=== PATIENT | female | born 1965 | race Caucasian/White ===

== ENCOUNTER 2019-12-03 16:34 | Outpatient (CLI) | payer OTHER, BC, SELFPAY ==
--- NOTE | ~2019-12-03 | MM_ITS ---
EXAMINATION: MM screening ibis BI w manisha HISTORY: Screening mammogram TECHNIQUE: Craniocaudal and mediolateral oblique 3-D tomosynthesis images were obtained and synthetic 2-D images were generated. CAD analysis was submitted and interpreted. COMPARISON: 10/28/2018 bilateral digital screening mammogram 11/03/2017 diagnostic right digital mammogram 10/05/2016, 09/27/2015 bilateral digital screening mammogram examinations BREAST PARENCHYMAL COMPOSITION: There are scattered areas of fibroglandular density. FINDINGS: Stable low-density circumscribed opacity in the lower inner quadrant of the right breast si nce 10/08/2017. There is no evidence of suspicious mass, calcification, or architectural distortion to suggest malignancy in either breast. There has been no suspicious interval change. IMPRESSION: 1. No mammographic evidence of malignancy. 2. Recommend routine screening mammography in one year. BI-RADS Category 2: Benign finding(s). Reviewed, dictated and finalized at location A.
== END 2019-12-03 16:35 | disposition home or self-care (01) ==
LOC: ANHIMG 16:38
PROVIDERS: PCP Internal Medicine; Visit Provider Obstetrics & Gynecology
DX: Z12.31 Encounter for screening mammogram for malignant neoplasm of breast (principal)
CPT/HCPCS: 77063; 77067

== ENCOUNTER 2021-01-26 16:39 | Outpatient (CLI) | payer OTHER, SELFPAY ==
--- NOTE | ~2021-01-26 | MM_ITS ---
EXAMINATION: MM screening ibis BI w manisha HISTORY: Screening mammogram TECHNIQUE: Craniocaudal and mediolateral oblique 3-D tomosynthesis images were obtained and synthetic 2-D images were generated. CAD analysis was submitted and interpreted. COMPARISON: 11/29/2019, 10/28/2018 bilateral screening mammogram examinations BREAST PARENCHYMAL COMPOSITION: There are scattered areas of fibroglandular density. FINDINGS: There is no evidence of suspicious mass, calcification, or architectural distortion to sugg est malignancy in either breast. There has been no suspicious interval change. IMPRESSION: 1. No mammographic evidence of malignancy. 2. Recommend routine screening mammography in one year. BI-RADS Category 2: Benign finding(s). Reviewed, dictated and finalized at location A. IGHT LINE PRESS SETTER
== END 2021-01-26 16:40 | disposition home or self-care (01) ==
LOC: ANHIMG 16:41
PROVIDERS: PCP Internal Medicine; Visit Provider Obstetrics & Gynecology
DX: Z12.31 Encounter for screening mammogram for malignant neoplasm of breast (principal)
CPT/HCPCS: 77063; 77067

== ENCOUNTER 2021-09-21 11:33 | Outpatient (CLI) | payer OTHER, SELFPAY ==
[2021-09-21 13:12] LABS: T4 Thyroxine 8.93 ug/dL (5.53-11.0)
[2021-09-26 15:56] LABS: Estrogen 794.6 pg/mL
[2021-09-26 22:47] LABS: Testosterone Total 12 ng/dL (2-45)
== END 2021-09-21 11:34 | disposition home or self-care (01) ==
LOC: ANHLAB 11:36
PROVIDERS: PCP Internal Medicine; Visit Provider Obstetrics & Gynecology
DX: N95.1 Menopausal and female climacteric states (principal); R53.83 Other fatigue
CPT/HCPCS: 36415; 82672; 84403; 84436; 84443

== ENCOUNTER 2021-10-06 10:07 | Outpatient (CLI) | payer OTHER, SELFPAY ==
--- NOTE | ~2021-10-06 | XR_ITS ---
XR lumbar spine min 4V 10/06/2021 10:44 Indication: Low back pain Procedure: 5 views of the lumbar spine Comparison: No prior studies for comparison. Findings: There are pedicle screws transfixing L4-5. There are prosthetic disc devices at L4-5 and L5 -S1. Vertebral body heights are maintained. Status post laminectomy/splenectomy at L4-5. No evidence for spondylolisthesis. There is mild disc narrowing at L3-4. No acute fracture or traumatic malalignm ent is identified. Impression: 1: Status post spinal fusion and discectomy at L4-5. Prosthetic disc device is also noted at L5-S1. 2: Mild degenerative disc disease at L3-4. Reviewed, dictated and finalized at location A. Impression: 1: Status post spinal fusion and discectomy at L4-5. Prosthetic disc device is also noted at L5-S1. 2: Mild degenerative disc disease at L3-4.
--- NOTE | ~2021-10-06 | XR_ITS ---
XR sacroiliac joints min 3V 10/06/2021 10:45 Indication: Hip pain. Previous low back surgeries. Procedure: 3 views of the sacroiliac joints Comparison: No prior studies for comparison. Findings: Sacroiliac joints are within normal limits. No significant asymmetry. No significant degene rative change. No erosive changes. No evidence for ankylosis. Sacral foramen are symmetric. Postopera tive changes noted in the lower lumbar spine and lumbosacral junction. Impression: 1: No significant abnormality of the sacroiliac joints. Reviewed, dictated and finalized at location A. Impression: 1: No significant abnormality of the sacroiliac joints.
--- NOTE | ~2021-10-06 | XR_ITS ---
XR hand BI arthritis min 3V 10/06/2021 10:45 Indication: Bilateral hand pain. Arthritis. Procedure: 4 views each hand Comparison: No prior studies for comparison. Findings: Osteopenia. No fracture, subluxation or dislocation. No significant degenerative change. No foreign bodies. No erosive changes. Impression: 1: No significant bone or joint abnormality. Reviewed, dictated and finalized at location A. Impression: 1: No significant bone or joint abnormality.
[2021-10-06 11:24] LABS: Uric Acid 4.7 mg/dL (2.5-7.5)
[2021-10-06 11:30] LABS: Complement C3 92 mg/dL (88-165)
[2021-10-06 12:06] LABS: Vitamin D 25 Hydroxy 55.3 ng/mL
[2021-10-10 03:45] LABS: Thyroid Peroxidase Antibodies <1 IU/mL (<9)
== END 2021-10-06 10:08 | disposition home or self-care (01) ==
PROVIDERS: PCP Internal Medicine; Visit Provider Internal Medicine
DX: M89.9 Disorder of bone, unspecified (principal); M25.551 Pain in right hip; M25.552 Pain in left hip; R76.8 Other specified abnormal immunological findings in serum; M47.816 Spondylosis without myelopathy or radiculopathy, lumbar region; M51.36 Other intervertebral disc degeneration, lumbar region; Z98.1 Arthrodesis status
CPT/HCPCS: 36415; 72110; 72202; 73130; 82306; 83519; 84550; 86160; 86376

== ENCOUNTER 2022-03-28 15:52 | Outpatient (CLI) | payer OTHER, SELFPAY ==
[2022-03-28 16:42] LABS: Basophils Absolute Auto 0.1 K/mm3 (0.0-0.1); Basophils Percent Auto 1.1 % (0.2-1.2); Eosinophils Absolute Auto 0.7 K/mm3 (0-0.3); Eosinophils Percent Auto 7.4 % (0-4.4); Hematocrit 44.3 % (37.0-47.0); Hemoglobin 14.2 g/dL (12.0-15.0); Immature Granulocyte Absolute 0.03 K/mm3 (0.00-0.031); Immature Granulocyte Percent A 0.3 % (0-0.5); Lymphocytes Absolute Auto 3.29 K/mm3 (0.9-3.2); Lymphocytes Percent Auto 35.8 % (18.3-44.2); Mean Corpuscular HGB Conc 32.1 g/dl (32-36); Mean Corpuscular Hemoglobin 29.5 pg (26-34); Mean Corpuscular Volume 91.9 fl (80-100); Mean Platelet Volume 10.8 fl (7.4-10.4); Monocytes Absolute Auto 0.8 K/mm3 (0.1-0.6); Monocytes Percent Auto 8.2 % (2.6-8.5); Neutrophils Absolute Auto 4.3 K/mm3 (1.3-6.7); Neutrophils Percent Auto 47.2 % (45.5-73.1); Platelet Count Result 332 k/mm3 (150-375); Red Blood Count 4.82 M/mm3 (4.2-5.4); Red Cell Distribution Width 15.6 % (11.5-14.5); White Blood Count 9.2 K/mm3 (4.5-10.0)
[2022-03-28 16:47] LABS: Appearance Urine Cloudy (Clear); Bilirubin Urine Negative (Negative); Blood Urine Trace-lysed (Negative); Color Urine Yellow (Yellow); Glucose Urine UA Negative (Negative); Ketones Urine Trace mg/dL (Negative); Leukocyte Esterase Ur 2+ LEU/UL (Negative); Nitrate Urine Negative (Negative); Protein Urine Negative (Negative); Specific Grav Ur >= 1.030 (1.001-1.035); Urobilinogen Urine 0.2 mg/dL (<2.0); pH Urine 5.5 (5.0-9.0)
[2022-03-28 16:52] LABS: Bacteria Urine Trace /hpf; Mucus Urine Rare /lpf; Squamous Epithelial Cell Urine Moderate /hpf (Few); WBC Urine >75 /hpf
[2022-03-28 16:53] LABS: Add Urine Microscopic? YES
[2022-03-28 17:05] LABS: Alanine Aminotransferase 40 U/L (6-35); Albumin Level 4.7 g/dL (3.5-5.1); Alkaline Phosphatase 102 U/L (38-126); Anion Gap 8 mmol/L (8-16); Aspartate Amino Transferase 45 U/L (14-36); Bilirubin,Total 1.1 mg/dL (0.2-1.3); Blood Urea Nitrogen 18 mg/dL (7-17); CRP 0.6 mg/dL (<1.0); Calcium 9.3 mg/dL (8.4-10.2); Carbon Dioxide 28 mmol/L (22-30); Chloride 104 mmol/L (98-107); Estimated Glomerular Filt Rate > 60; Glucose 95 mg/dL (65-110); Potassium 4.2 mmol/L (3.4-5.0); Sodium 140 mmol/L (137-145)
[2022-03-28 17:08] LABS: Erythrocyte Sedimentation Rate 9 mm/hr (0-20)
[2022-04-02 06:45] LABS: SM Antibody <1.0; SM/RNP Antibody <1.0; SS-A <1.0; SS-B <1.0
[2022-04-03 03:36] LABS: Lupus dRVVT Screen 32 sec (<=45); PTT-LA Screen 31 sec (<=40)
[2022-04-03 18:28] LABS: Parathyroid Hormone Related Pr 12 pg/mL (11-20)
== END 2022-03-28 15:53 | disposition home or self-care (01) ==
LOC: ANHLAB 15:55
PROVIDERS: PCP Internal Medicine; Visit Provider Internal Medicine
DX: M19.90 Unspecified osteoarthritis, unspecified site (principal); M25.551 Pain in right hip; M25.552 Pain in left hip; R76.8 Other specified abnormal immunological findings in serum
CPT/HCPCS: 36415; 80053; 81001; 83519; 85025; 85613; 85652; 85730; 86140; 86235; 87086; 87088; 87147

== ENCOUNTER 2022-04-11 16:33 | Outpatient (CLI) | payer OTHER, SELFPAY ==
--- NOTE | ~2022-04-11 | MM_ITS ---
EXAMINATION: MM screening ibis BI w manisha HISTORY: Screening TECHNIQUE: Craniocaudal and mediolateral oblique 3-D tomosynthesis images were obtained and synthetic 2-D images were generated. CAD analysis was submitted and interpreted. COMPARISON: Comparison to multiple prior studies sequentially, with oldest reviewed study dated 10/05. BREAST PARENCHYMAL COMPOSITION: The breasts are heterogeneously dense, which may obscure small masses . FINDINGS: There is no evidence of suspicious mass, calcification, or architectural distortion to sugg est malignancy in either breast. There has been no suspicious interval change. IMPRESSION: 1. No mammographic evidence of malignancy. 2. Recommend routine screening mammography in one year. BI-RADS Category 1: Negative Reviewed, dictated and finalized at location A. ING MILL OPERATOR
== END 2022-04-11 16:34 | disposition home or self-care (01) ==
LOC: ANHIMG 16:36
PROVIDERS: PCP Internal Medicine; Visit Provider Obstetrics & Gynecology
DX: Z12.31 Encounter for screening mammogram for malignant neoplasm of breast (principal)
CPT/HCPCS: 77063; 77067

== ENCOUNTER 2023-06-19 13:43 | Outpatient (CLI) | payer OTHER, SELFPAY ==
--- NOTE | ~2023-06-19 | DEXA_ITS ---
Bone Density Report Name: RADHA PANDEY Age: 57 Sex: Female Ethnicity: White Date of : 1965 Indication: postmenopausal; screening for osteoporosis; hysterectomy; Referring Provider: ASTON, PARTH Hemphill Study: Bone densitometry was performed. Exam Date: June 19, 2023 Accession number: [id number] Bone Density: Region BMD T-score Z-score Classification AP Spine(L1-L4) 1.161 1.0 2.1 Normal Femoral Neck (Left) 0.826 -0.2 0.9 Normal Total Hip (Left) 0.928 -0.1 0.6 Normal Femoral Neck (Right) 0.826 -0.2 0.9 Normal Total Hip (Right) 0.947 0.0 0.8 Normal Total Hip Mean 0.937 -0.1 0.7 Normal World Health Organization criteria for BMD impression classify patients as: Normal (T-score at or above -1.0), Osteopenia (T-score between -1.0 and -2.5), or Osteoporosis (T-score at or below -2.5). 10-year Fracture Risk: FRAX not reported because: All T-scores for Spine Total, Hip Total, Femoral Neck at or above -1.0 Clinical Information Provided by Patient: Has used the following medications: Vitamin D, Calcium Has the following medical conditions: Hysterectomy Patient maximum height was 70 Menopause Age: 35 No regular weight bearing exercise Drinks caffeinated beverages Onset of menses at age 15 Number of children 1 Impression: The patient has normal bone mass. Discussion: BONE DENSITY IS ABOVE THE MINIMUM DESIRABLE LEVEL AT ALL SKELETAL SITES TESTED. This patient?s bone mineral density is above the minimum desirable level (T-score -1.0 or better) at all sites measured. The patient should follow a healthful lifestyle (good nutrition with adequate calcium and vitamin D, and appropriate weight-bearing exercise). Follow-Up: Consider repeating this study in 5 years or sooner if there is some new clinical indication. Reported by: ENOCH on 06/19/2023 2:19:00 PM. Reviewed, dictated and finalized at location A.
== END 2023-06-19 13:44 | disposition home or self-care (01) ==
LOC: ANHIMG 13:44
PROVIDERS: PCP Internal Medicine; Visit Provider Internal Medicine
DX: M81.0 Age-related osteoporosis without current pathological fracture (principal)
CPT/HCPCS: 77080

== ENCOUNTER 2024-05-22 08:28 | Outpatient (CLI) | payer OTHER, SELFPAY ==
--- OUTSIDE RECORDS SUMMARY | 2024-05-22 08:49 | XMS_ITS | Clinical Summary ---
Author Organization [facility] Address [address] [place] [address] Care Team Providers Care Ditch Tender Name Role Phone Román Simon MD Primary Care Provider [phone] Allan Sanchez MD Unavailable [phone] Source Comments [facility],non-owned Affiliates and Associated Physician Practices is amultiple site organization consisting of ambulatory clinics and hospital sitesin [place], [place], [place] and [place]. This disclosure is being madepursuant to the Care Everywhere program and may not contain all information available regarding this patient. Last updated 17.[facility] Allergies Active Allergy Reactions Criticality Noted Date Comments Penicillins 09/13/2011 rash Medications * Be aware that medications may not be up to date on this document. Alwaysverify current medications with the patient. Medication Sig Dispensed Refills Start Date End Date Status ibuprofen (ADVIL; MOTRIN) 100 MG/5ML SUSP suspension Take by mouth every 6 hours as needed. Active cyclobenzaprine (FLEXERIL) 5 MG TABS tablet Take 5 mg by mouth 3 times daily as needed. Active Active Problems Problem Noted Date Diagnosed Date Low back pain 09/13/2011 Overview (01/16/2015): Social History Tobacco Use Types Packs/Day Years Used Date Smoking Tobacco: Never Alcohol Use Standard Drinks/Week Comments Not Asked 0 (1 standard drink = 0.6 oz pur e alcohol) Sex and Gender Information Value Date Recorded Sex Assigned at Not on file Gender Identity Not on file Sexual Orientation Not on file Last Filed Vital Signs Vital Sign Reading Time Taken Comments Blood Pressure 108/57 09/15/2012 12:03 PM CDT Pulse 88 09/15/2012 12:03 PM CDT Temperature - - Respiratory Rate 16 09/15/2012 12:03 PM CDT Oxygen Saturation 96% 09/15/2012 12:03 PM CDT Inhaled Oxygen Concentration - - Weight 97.5 kg (215 lb) 09/08/2012 1:17 PM CDT Height 177.8 cm (5' 10 ) 09/08/2012 1:17 PM CDT Body Mass Index 30.85 09/08/2012 1:17 PM CDT Plan of Treatment Health Maintenance Due Date Last Done Comments COLOGUARD (AGES 45-75) - COL ON CA SCREENING 1965 COLON MONITORING 1965 COLONOSCOPY - COLON CA SCREENING 1967 CT COLONOGRAPHY - COLON CA SCREENING 1965 Colorectal Cancer Screening 1965 FIT - COLON CA SCREENING 1967 FLEX SIG - COLON CA SCREENING 1965 LIPID TESTING 1965 MAMMOGRAM 1965 PAP SMEAR 1965 HIV SCREENING 10/04/1982 HEPATITIS C SCREENING 09/30/1985 DTAP/TDAP/TD VACCINES (1 - Tdap) 10/04/1986 HEPATITIS B VACCINE (1 of 3 - 19+ 3-dose series) 10/04/1986 PNEUMOCOCCAL VACCINE 50+ (1 of 1 - PCV) 10/04/2017 ZOSTER VACCINE (1 of 2) 10/04/2017 COVID-19 VACCINE (1 - 2023-2 5 season) 2023 INFLUENZA VACCINE (#1) 2023 DEPRESSION SCREENING 03/11/2024 HIB VACCINE Aged Out No longer eligi ble based on patient's age to complete this topic HPV VACCINE Aged Out No longer eligi ble based on patient's age to complete this topic MENINGOCOCCAL (Group B) VACC INE SHARED DECISION-MAKING Aged Out No longer eligibl e based on patient's age to complete this topic MENINGOCOCCAL GROUPS A/C/Y/W VACCINE Aged Out No longer eligible b ased on patient's age to complete this topic PNEUMOCOCCAL VACCINE Aged Out No long er eligible based on patient's age to complete this topic Care Teams Ditch Tender Relationship Specialty Start Date End Date Román Simon MD [address] [place] [address] [address] [place] [address] PCP - General 09/13/11 [place] [address] [facility] [address] [place] [address] Orthopedic Surgery 09/09/12
--- OUTSIDE RECORDS SUMMARY | 2024-05-22 08:49 | XMS_ITS | Referral Summary ---
Author Organization [facility] Address [address] [place] [address] Care Team Providers Care Sales Development Director Name Role Phone Román Simon MD Primary Care Provider [phone] Allan Sanchez MD Unavailable [phone] Source Comments [facility],non-owned Affiliates and Associated Physician Practices is amultiple site organization consisting of ambulatory clinics and hospital sitesin [place], [place], [place]. This disclosure is being madepursuant to the Care Everywhere program and may not contain all information available regarding this patient. Last updated 17.[facility] Allergies Active Allergy Reactions Criticality Noted Date [...] 09/08/2012 1:17 PM CDT Plan of Treatment Not on file Care Teams Sales Development Director Relationship Specialty Start Date End Date Román Simon MD [address] [place] [address] [address] [place] [address] PCP - General 09/13/11 [place] [address] [place] [address] Orthopedic Surgery 09/09/12
--- OUTSIDE RECORDS SUMMARY | 2024-05-22 08:49 | XMS_ITS ---
Author Organization [facility] Address [address] [facility] [address] [place] [address] Care Team Providers Care Cyber Policy And Strategy Planner Name Role Phone MICKI GAYTAN Josefina [phone] Allergies Allergen (clinical drug ingredient) Drug/Non Drug Allergy documented on EMR Reaction Allergy Type Onset Date Status No Known Food Allergy Unknown Drug Allergy active Penicillin rash Drug Allergy active REASON FOR VISIT Est. Lower Back pain/ Neck pain Vital Signs Blood pressure systolic 131 mm Hg 05/19/19 25 Blood pressure diastolic 82 mm Hg 025 Temperature 97.3 degrees Fahrenheit 05/19/19 25 Heart Rate 67 /min 05/18/2024 Respiratory Rate 18 /min 05/18/2024 Oximetry 98 % 05/18/2024 Height 68 in 05/18/2024 Weight 213.6 lbs 05/18/2024 BMI 32.47 kg/m2 05/18/2024 Height-cm 172.72 cm 05/18/2024 Weight-kg 96.89 kg 05/18/2024 Encounters Encounter Location Date Provider Diagnosis [facility] [address] [place] [address] 05/18/2024 MICKI GAYTAN Assessments Encounter Date Diagnosis (ICD Code) Assessment Notes Treatment Notes Treatment Clinical Notes Section Notes 05/18/2024 Other Consent to Treat form was signed by the patient prior to the initial evaluation. I have carefully reviewed the diagnostic images of the involved areas as well as reviewed the radiologists report. I then determined that the patient is a candidate for conservative chiropractic management to include gentle spinal manipulation to the involved areas via instrument assisted methods. Treatment Plan: Twice a week for the next 4 weeks with treatment to include gentle spinal manipulation of the involved areas via instrument assisted methods. No twisting or torquing type movements of the spine will be performed. Treatment Plan: To be determined after the diagnostic images of the involved area of the spine and the radiologist report are reviewed and discussed with the patient at the time of the next visit. Goals: Improved ability to perform daily tasks that involve sitting/standing for greater than 1 hour. Improved ability to perform daily tasks that involve reaching and outstretched/overh ead type movements with the arms and shoulders. Improved ability to turn the head from side to side w/out the need to turn the upper body. Improved ability to perform daily tasks that involve forward bending, stooping and lifting. Improved ability to sleep for greater than 3-4 hours w/out being awakened. Improved ability to stand/walk for greater than 5 minutes without the need to sit down. Improved ability to change postural positions from a seated to a standing position. Patient will be referred for diagnostic imaging of the involved area(s). Results of the imaging will be discussed at the next visit to determine if the patient is a candidate of chiropractic treatment. Patient demonstrated understanding of their problem and expresses interest in beginning a care plan I attest that I have reviewed today's notes for today's visit and all the services have been received as indicated and my pain levels indicated and treatment times are accurate. Prognosis: Favorable Guarded at this time Plan Of Treatment Treatment Notes Assessment Notes Other Consent to Treat form was signed by the patient prior to the initial evaluation. I have carefully reviewed the diagnostic images of the involved areas as well as reviewed the radiologists report. I then determined that the patient is a candidate for conservative chiropractic management to include gentle spinal manipulation to the involved areas via instrument assisted methods. Treatment Plan: Twice a week for the next 4 weeks with treatment to include gentle spinal manipulation of the involved areas via instrument assisted methods. No twisting or torquing type movements of the spine will be performed. Treatment Plan: To be determined after the diagnostic images of the involved area of the spine and the radiologist report are reviewed and discussed with the patient at the time of the next visit. Goals: Improved ability to perform daily tasks that involve sitting/standing for greater than 1 hour. Improved ability to perform daily tasks that involve reaching and outstretched/overhead type movements with the arms and shoulders. Improved ability to turn the head from side to side w/out the need to turn the upper body. Improved ability to perform daily tasks that involve forward bending, stooping and lifting. Improved ability to sleep for greater than 3-4 hours w/out being awakened. Improved ability to stand/walk for greater than 5 minutes without the need to sit down. Improved ability to change postural positions from a seated to a standing position. Patient will be referred for diagnostic imaging of the involved area(s). Results of the imaging will be discussed at the next visit to determine if the patient is a candidate of chiropractic treatment. Patient demonstrated understanding of their problem and expresses interest in beginning a care plan I attest that I have reviewed today's notes for today's visit and all the services have been received as indicated and my pain levels indicated and treatment times are accurate. Prognosis: Favorable Guarded at this time Next Appt Details Provider Name:MICKI Jhaveri, 06/01/2024 02:15:00 PM, [address], [address], Progress Notes * Yumi PANDEYOB:1965 (58 yo F)Acc No.[id number]:05/18/2024 Patient: Claudette GODFREY Provider: Ludwig GAYTAN D.C. :1965 A ge:58 Y S ex:Female Date:05/18/2024 Address:[facility], [facility] Address, [facility] Subjective: * Chief Complaints: * 1 . Est. Lower Back pain/ Neck pain. * HPI: H PI Details: General Information: Patient was referred today for chiropractic evaluation byLurdes zhoueletal Report: Patient Subjective Progress Report C onditions/Complaints Today S ee HPI F requency: . S everity: 1 T he pain is: A fili, Sharp, Other - see notes D oes your condition affect your normal activities of daily living: Y es I f yes, is the effect: Michael Blanton oes your condition affect your work: Y es I f yes, the effect is: M oderate D oes your condition affect your sleep: Y es I f yes, the effect is: M oderate D oes your condition affect your social and recreational activities: Y es I f yes, the effect is: M oderate A ny comments about your condition or care you have received at this office: S ee notes for any comments * Medical History: * Allergies: P enicillin: rash - Allergy, No Known Food Allergy: Allergy. Objective: * Vitals: B P:131/82mm Hg, Temp:97.3F, HR:67/min, RR:18/min, Oxygen sat %:98%, Pain scale:51-10, Ht: 68 in, Wt:213.6lbs, BMI:32.47Index, Ht-cm: 172.72 cm, Wt-k.89 kg. * Examination: O rthopedic Tests: Ortho (Cervical) C ompression W NL D istraction W NL S houlder Dep W NL V alsalva W NL S annette Bergeron W NL Ortho (Lumbar) H eel Walking W NL T oe Walking W NL B echterew's W NL S LR W NL K emps W NL E ly's W NL B owstrings W NL H ibbs W NL F ABER W NL N achlas W NL V alsalva W NL L indner's W NL M ilgram's W NL M yo/Dermatomes Tests: Lorenzo/Dermatomes C 5 W NL C 6 W NL C 7 W NL C 8 W NL T 1 W NL L 1 W NL L 2 W NL L 3 W NL L 4 W NL L 5 W NL Muscle Strength w as 5/5 in the upper extremities., was 5/5 in the lower extremities.. R eflex Tests: Reflexes 0-4 B iceps C5 W NL B rachio C6 W NL T riceps C7 W NL P atellar L4 W NL A chilles S1 W NL D TR's were 2+ bilaterally in the upper extremities DTR's were 2+ bilaterally in the lower extremities. Assessment: Plan: * Treatment: * Procedures: T reatment today consisted of gentle spinal manipulation via instrument assisted methods of the following levels: The patient tolerated the procedure well and experienced relief following the treatment. The patient is to avoid any pain producing activities. * Procedure Codes: 9 [id number] CHIROPRACTIC MANIPULATION * Billing Information: * Visit Code: * Procedure Codes: 73292 CHIROPRACTIC MANIPULATION. * Electronic signature of JOHANNA GAYTAN DC on 05/22/2024 at 09:49 AM EDT Sign off status: Pending * Provider: Ludwig GAYTAN D.C. Date: 0 05/18/2024 Generated for Printi ng/Faxing/eTransmitting on: 0 05/22/2024 09:49 AM EDT History and Physical Notes * HPI (History of Present Illness) Category Sub-Category Detail Notes Category Not es HPI Details General Information: Patient was referred today for chiropractic evaluation by Musculoskeletal Report Patient Subjectiv e Progress Report Conditions/C omplaints Today: See HPI Frequency:: . Severity:: 1 The pain is:: Achy, Sharp, Other - see n otes Does your condition affect your normal a ctivities of daily living:: Yes If yes, is the effect:: Moderate Does your condition affect your work:: Y es If yes, the effect is:: Moderate Does your condition affect your sleep:: Yes If yes, the effect is:: Moderate Does your condition affect your social a nd recreational activities:: Yes If yes, the effect is:: Moderate Any comments about your cond ition or care you have received at this office:: See notes for any comments Examination Category Sub-Category Detail Notes Category Not es Orthopedic Tests Ortho (Cervical) Compression: WNL Distraction: WNL Shoulder Dep: WNL Valsalva: WNL Burton Bergeron: WNL Ortho (Lumbar) Heel Walking: WNL Toe Walking: WNL Bechterew's: WNL SLR: WNL Kemps: WNL Nicole's: WNL Bowstrings: WNL Noble: WNL MARISSA: WNL Nachlas: WNL Valsalva: WNL Linda's: WNL Milgram's: WNL Lorenzo/Dermatomes Tests Lorenzo/Dermatomes C5: WNL C6: WNL C7: WNL C8: WNL T1: WNL L1: WNL L2: WNL L3: WNL L4: WNL L5: WNL Muscle Strength was 5/5 in the upper extremities., was 5/5 in the lower extremities. Reflex Tests Reflexes 0-4 Biceps C5: WNL DTR's were 2+ bilaterally in the upper extremities DTR's were 2+ bilaterally in the lower extremities Brachio C6: WNL Triceps C7: WNL Patellar L4: WNL Achilles S1: WNL
--- OUTSIDE RECORDS SUMMARY | 2024-05-22 08:49 | XMS_ITS | Patient Health Record ---
Author Organization [facility] Address [address] [facility] [address] [place] [address] Care Team Providers Care Lithostripper Name Role Phone MICKI GAYTAN Josefina [phone] Allergies Allergen (clinical drug ingredient) Drug/Non Drug Allergy documented on EMR Reaction Allergy Type Onset Date Status No Known Food Allergy Unknown Drug Allergy active Penicillin rash Drug Allergy active Reason For Referral No Information Vital Signs Heart Rate 67 /min 05/18/2024 Temperature 97.3 degrees Fahrenheit 05/18/2024 Respiratory Rate 18 /min 05/18/2024 Blood pressure diastolic 82 mm Hg 05/18/2024 Oximetry 98 % 05/18/2024 Height-cm 172.72 cm 05/18/2024 Weight-kg 96.89 kg 05/18/2024 Height 68 in 05/18/2024 Blood pressure systolic 131 mm Hg 05/18/2024 Weight 213.6 lbs 05/18/2024 BMI 32.47 kg/m2 05/18/2024 Encounters Encounter Location Date Provider Diagnosis [facility] [address] [facility] [address] [place] [address] 05/18/2024 MICKI GAYTAN Assessments Encounter Date Diagnosis [...] Guarded at this time Plan Of Treatment Next Appt Details Provider Name:MICKI Jhaveri, 06/01/2024 02:15:00 PM, [address] [address], [place], [address], Medical (General) History Surgical History Surgery Date(Month/Year) PARTIAL HYSTERECTOMY Tonsillectomy Section
--- OUTSIDE RECORDS SUMMARY | 2024-05-22 08:49 | XMS_ITS | Patient Health Summary ---
Author Organization [facility] Address [address] [facility] [facility] [place] [address] Care Team Providers Care Cross Country/Track And Field Coach Name Role Phone Román Simon MD Primary Care Provider [phone] Allan Sanchze MD Unavailable [phone] Note from [facility],non-owned Affiliates and Associated Physician Practices is amultiple site organization consisting of ambulatory clinics and hospital sitesin [place], [place], [place] and [place]. This disclosure is being madepursuant to the Care Everywhere program and may not contain all information available regarding this patient. Last updated 17.[facility] Allergies * Penicillins(rash) Medications * Be aware that medications may not be up to date on this document. Alwaysverify current medications with the patient. * ibuprofen (ADVIL; MOTRIN) 100 MG/5ML SUSP suspension Take by mouth every 6 hours as needed. * cyclobenzaprine (FLEXERIL) 5 MG TABS tablet Take 5 mg by mouth 3 times daily as needed. Active Problems Problem Noted Date Diagnosed Date Low back pain 09/13/2011 Social History Tobacco Use Types Packs/Day Years [...] Mass Index 30.85 09/08/2012 1:17 PM CDT Procedures * PAIN MANAGEMENT PROCEDURE TIME(Performed 09/15/2012) Performed for Spinal stenosis, lumbar region, without neurogenic claudication, Thoracic Or Lumbosacral Neuritis Or Radiculitis, Unspecified * TX EMG,1 EXTREMITY(Performed 09/08/2012) Performed for Thoracic Or Lumbosacral Neuritis Or Radiculitis, Unspecified, Spinal stenosis, lumbarregion, without neurogenic claudication * TX NRV CNDJ TST 5 TO 6 STUDIES(Performed 09/08/2012) Performed for Thoracic Or Lumbosacral Neuritis Or Radiculitis, Unspecified, Spinal stenosis, lumbarregion, without neurogenic claudication * PAIN MANAGEMENT PROCEDURE TIME(Performed 09/04/2012) Performed for Spinal stenosis, lumbar region, without neurogenic claudication, Thoracic Or Lumbosacral Neuritis Or Radiculitis, Unspecified * PAIN MANAGEMENT PROCEDURE TIME(Performed 08/07/2012) Performed for Spinal stenosis, lumbar region, without neurogenic claudication, Thoracic Or Lumbosacral Neuritis Or Radiculitis, Unspecified * PAIN MANAGEMENT PROCEDURE TIME(Performed 07/31/2012) Performed for Spinal stenosis, lumbar region, without neurogenic claudication, Thoracic Or Lumbosacral Neuritis Or Radiculitis, Unspecified * PAIN MANAGEMENT PROCEDURE TIME(Performed 09/20/2011) Performed for Spinal stenosis, lumbar region, without neurogenic claudication, Thoracic or lumbosacral neuritis or radiculitis, unspecified * PAIN MANAGEMENT PROCEDURE TIME(Performed 09/13/2011) Performed for Spinal stenosis, lumbar region, without neurogenic claudication, Thoracic or lumbosacral neuritis or radiculitis, unspecified * GROSS + MICRO EXAM(Performed 10/29/2002) * GROSS + MICRO EXAM(Performed 04/08/1996) Results * PAIN MANAGEMENT PROCEDURE TIME (09/15/2012 11:50 AM CDT) Only the most recent of6 resultswithin the time period is included. Anatomical Region Laterality Modality X-Ray Angiograph y Narrative 09/15/2012 11:56 AM CDT Tanner Lira MD 09/15/2012 11:56 AM Lumbar KVNG L5-S1 Claudette Avalos Provider: Tanner Lira MD 1965 Date: 09/15/2012 Román Simon Pt. presents today for a injection. Allergies: Allergies as of 09/15/2012 - reviewed 09/15/2012 Allergen Reaction Noted Pcn (penicillins) 09/13/2011 Procedures: Epidural L5-S1 Diagnosis/Indication::Lumbar epidural steriod injection 724.4 Other conservative therapies and/or treatments provided inadequate pain relief. Informed Consent: After the patient was informed of the risks and benefits of the procedure and all questions were answered, consent was signed.Risks benefits, and alternative were discussed including risk of infection, bleeding , nerve damage, worsening pain, no pain relief whatsoever, transient increase in blood pressure, blood sugar, fluid retention,possibility of headache, possibility of shingles, or any other viral outbreak secondary to immunosuppressant effects of steroid use Prep: Pt identified, proper procedure identified, site identified, and marked by Dr. Lira. Pt is not on Coumidin, Plavix or other blood thinners. Responsible pick up truck driver is not needed due to the patient not having sedation. The patient was placed in a prone position and was prepped with Chloraprep. Procedure: Lidocaine 1% was injected with a 25 gauge needle at L5 verifying placement with the guided fluoroscopy. An 18 gauge Touhy needle was placed into the epidural space using loss or resistance technique with preservative free (PF) normal saline. No cerebral spinal fluid or blood was aspirated prior to the injection. 80 milligrams of Depo medrol and saline were injected into the epidural space. Complications: None The patient tolerated the procedure well and there were no complications. The patient was taken to the recovery area. The patient remained in stable condition with no apparent complications. Vital signs stable. Injection site clean, dry, and intact. Post procedure instructions were given to the patient and a follow up appointment was confirmed. The patient was discharged with information on how to reach the clinic at anytime for questions or concerns. Pt ambulatory, denies complaints, DC to home. Pt survey given. Procedure code: Epi Lum/cad, Flouro Follow Up: 1 week Tanner Lira MD Procedure Note Tanner Lira MD - 09/15/2012 11:56 AM CDT Lumbar KVNG L5-S1 Claudette MillerProvider: Tanner Lira MD 1965Date: 09/15/2012 Román Simon Pt. presents today for a injection. Allergies: Allergies as of 09/15/2012 - reviewed 09/15/2012 Allergen Reaction Noted Pcn (penicillins) 09/13/2011 Procedures: Epidural L5-S1 Diagnosis/Indication::Lumbar epidural steriod injection 724.4 Other conservative therapies and/or treatments provided inadequate painrelief. Informed Consent: After the patient was informed of the risks andbenefits of the procedure and all questions were answered, consent wassigned.Risks benefits, and alternative were discussed including risk ofinfection, bleeding , nerve damage, worsening pain, no pain reliefwhatsoever, transient increase in blood pressure, blood sugar, fluidretention,possibility of headache, possibility of shingles, or any otherviral outbreak secondary to immunosuppressant effects of steroid use Prep: Pt identified, proper procedure identified, site identified, andmarked by Dr. Lira. Pt is not on Coumidin, Plavix or other bloodthinners. Responsible pick up truck driver is not needed due to the patient not havingsedation. The patient was placed in a prone position and was prepped withChloraprep. Procedure: Lidocaine 1% was injected with a 25 gauge needle at [id number] placement with the guided fluoroscopy. An 18 gauge Touhy needlewas placed into the epidural space using loss or resistance technique withpreservative free (PF) normal saline. No cerebral spinal fluid or bloodwas aspirated prior to the injection. 80 milligrams of Depo medrol andsaline were injected into the epidural space. Complications: None The patient tolerated the procedure well and there were no complications.The patient was taken to the recovery area. The patient remained instable condition with no apparent complications. Vital signs stable.Injection site clean, dry, and intact. Post procedure instructions weregiven to the patient and a follow up appointment was confirmed. Thepatient was discharged with information on how to reach the clinic atanytime for questions or concerns. Pt ambulatory, denies complaints, DCto home. Pt survey given. Procedure code: Epi Lum/cad, Flouro Follow Up: 1 week Tanner Lira MD Tanner Lira MD DIAGNOSTIC IMAGING O RDERABLES * TX NRV CNDJ TST 5 TO 6 STUDIES (09/08/2012) Allan Sanchez MD [place] - PROFESSIONAL SE RVICES [facility] RESULT SCAN * TX EMG, NEEDLE, ONE LIMB (09/08/2012) Allan Sanchez MD [place] - PROFESSIONAL SE RVICES [facility] RESULT SCAN * GROSS + MICRO EXAM (10/29/2002 6:48 PM CDT) Only the most recent of2 resultswithin the time period is included. Result CASE NUMBER [id number] Comment: ORDERING PHYSICIAN JOSELIN BERNARD SPECIMEN TYPE Intervertebral Disc Date 10/30/2002 Physician Estevan Gross Description Received in a formalin-filled container, labeled Claudette Avalos, L5-S1 disc and consists of multiple fragments of garcia white soft tissue consistent with disc material which measures 5.5 x 2.5 x 1 cm in aggregate. Deputy Chief Executive sections are submitted in one cassette. [place] [facility] [place] Microscopic Exam Sections show benign fibrous cartilage with degenerative changes. There is no evidence of malignancy. MC/ Diagnosis I. Disc material, L5-S1, resection A. Consistent with herniated Nucleus pulposus MC/ Shipping Lead [facility] [place] Path[place] Marta Jordan M.D. [place]. 11/02/2002 1142 <1> CPT code 70576 MISCELLANEOUS SAMPLES / Unknown 10/29/2002 6:48 PM CDT 10/29/2002 6:48 PM CDT Historical Provider LAB - PATHOLOGY/C YTOLOGY ORDERABLES Care Teams Cross Country/Track And Field Coach Relationship Specialty Start Date End Date Román Simon MD [address] [place] [address] [address] [place] [address] PCP - General 09/13/11 [place] [address] [address] Orthopedic Surgery 09/09/12
--- OUTSIDE RECORDS SUMMARY | 2024-05-22 08:49 | XMS_ITS | Encounter Summary ---
Author Organization [facility] Address [address] [place] [address] Care Team Providers Care Title One Teacher Name Role Phone Román Simon MD Primary Care Provider [phone] Encounter Details Date Type Department Care Team (Late st Contact Info) Description 02/12/2018 [facility] [address] [place] [address] Sandovla Pickens MD [address] [place] [address] Social History Tobacco Use Types Packs/Day Years Used Date Smoking Tobacco: Never Assessed Comments No Sex and Gender Information Value Date Recorded Sex Assigned at Not on file Legal Sex Female 10:22 AM CDT Gender Identity Not on file Sexual Orientation Not on file documented as of this encounter Plan of Treatment Not on file documented as of this encounter Visit Diagnoses Not on filedocumented in this encounter Care Teams Title One Teacher Relationship Specialty Start Date End Date Román Simon MD [address] [facility] [address] [place] [address] PCP - General Internal Medicine 12/16/17 documented as of this encounter
--- OUTSIDE RECORDS SUMMARY | 2024-05-22 08:50 | XMS_ITS | Clinical Summary ---
Author Organization [facility] Address [address] [address] [place] [address] Phone Care Team Providers Care Stretching Machine Tender Frame Name Role Phone Román Simon MD Primary Care Provider [phone] Allergies Active Allergy Reactions Criticality Noted Date Comments Penicillins Rash Low 12/19/2017 Medications HYDROcodone-acet aminophen (HYCET) 7.5-325 mg/15 mL Solution Take 15 mL by mouth every 6 hours as needed for Pain, Severe. Max Daily Amount: 60 mL 300 mL 02/27/2018 2:49 PM [employer] 02/26/2018 Active ondansetron (ZOFRAN ODT) 4 mg Tablet, Rapid Dissolve Place 1 Tablet (4 mg) under tongue every 6 hours as needed for Nausea. 10 Tablet 02/27/2018 2:49 PM [employer] 02/26/2018 Active Active Problems Problem Noted Date Diagnosed Date Gastroesophageal reflux disease without esophagi tis 02/26/2018 Mild intermittent asthma without complication Social History Tobacco Use Types Packs/Day Years Used Date Smoking Tobacco: Never Smokeless Tobacco: Never Alcohol Use Standard Drinks/Week Comments No 0 (1 standard drink = 0.6 oz pur e alcohol) Comments No Sex and Gender Information Value Date Recorded Sex Assigned at Not on file Legal Sex Female 10:22 AM CDT Gender Identity Not on file Sexual Orientation Not on file Last Filed Vital Signs Vital Sign Reading Time Taken Comments Blood Pressure 158/89 02/27/2018 11:28 AM [employer] Pulse 68 02/27/2018 11:28 AM [employer] Temperature 36.5 C (97.7 F) 02/27/2018 11:28 AM [employer] Respiratory Rate 16 02/27/2018 11:28 AM [employer] Oxygen Saturation 100% 02/27/2018 11:28 AM [employer] Inhaled Oxygen Concentration - - Weight 119.9 kg (264 lb 6 oz) 02/27/2018 4:21 AM [employer] Height 172.7 cm (5' 8 ) 02/17/2018 8:54 AM [employer] Body Mass Index 40.2 02/17/2018 8:54 AM [employer] Plan of Treatment Health Maintenance Due Date Last Done Comments PNEUMOCOCCAL VACCINE 0-49 YEARS (1 of 2 - PCV) 974 DTAP/TDAP/TD VACCINES (1 - Tdap) 10/04/1986 HEPATITIS B VACCINES (1 of 3 - 19+ 3-dose series) 09/09 CERVICAL CANCER SCREENING 10/04/1997 BREAST CANCER SCREENING 2007 COLORECTAL SCREENING 10/04/2012 Colorectal Cancer Screening 10/04/2012 FIT-DNA Q 3 years 10/04/2012 FIT/FOBT Q 1 year 10/04/2012 Flex Sig/CT Colonography Q 5 years 10/04/2012 ZOSTER VACCINE (1 of 2) 10/04/2017 INFLUENZA VACCINE (#1) 2023 Medical Devices Implanted Type Area Seismic Observer Device Identifier Shelf Expiration Date Model / Serial / Lot Seamguard Endogia 60 Blck [id number] - [id number] Implanted:Qty : 2 on 02/26/2018 by Sandoval Pickens MD at [facility] [employer] N/A: Stomach [employer] 10/08/2020 [id number] / / [id number] Seamguard Endogia 60 Prpl [id number] - [id number] Implanted:Qty : 2 on 02/26/2018 by Sandoval Pickens MD at [facility] [employer] N/A: Stomach [employer] 10/08/2020 [id number] / / [id number] Cage,Screws Description:back Insurance [facility] [employer] [place] [id number] BCBS BLUE ACCESS/TRUE BLUE PPO RX EXPRESS S[employer]IP[employer] Express RX [employer] Commercial Advance Directives For more information, please contact: [phone] * Full Code (Latest Code Status on File) Date Activated Date Inactivated Comments 02/26/2018 1:48 PM 02/27/2018 5:54 PM * Full Code Date Activated Date Inactivated Comments 02/26/2018 10:34 AM 02/26/2018 1:48 PM * Full Code Date Activated Date Inactivated Comments 12/20/2017 7:07 AM 12/20/2017 11:44 AM Care Teams Stretching Machine Tender Frame Relationship Specialty Start Date End Date Román Simon MD [address] [id number] PCP - General Internal Medicine 12/16/17
--- OUTSIDE RECORDS SUMMARY | 2024-05-22 08:50 | XMS_ITS | CONTINUITY OF CARE DOCUMENT ---
Author Name henrry sales Address Unknown Organization [facility] Address [address] [place] [address] [address] [place] [address] Phone [phone] Care Team Providers Care Cd Technician Name Role Phone henrry sales Unavailable Unavailable INSURANCE PROVIDERS Payer name Policy type / Coverage type [place] red constitution party ID [facility] [id number] Other [id number]
[2024-05-22 08:57] LABS: Basophils Absolute Auto 0.1 K/mm3 (0.0-0.1); Basophils Percent Auto 1.3 % (0.2-1.2); Eosinophils Absolute Auto 0.3 K/mm3 (0-0.3); Eosinophils Percent Auto 4.7 % (0-4.4); Hematocrit 43.7 % (37.0-47.0); Hemoglobin 14.2 g/dL (12.0-15.0); Immature Granulocyte Absolute 0.02 K/mm3 (0.00-0.031); Immature Granulocyte Percent A 0.3 % (0-0.5); Lymphocytes Percent Auto 31.6 % (18.3-44.2); Mean Corpuscular HGB Conc 32.5 g/dl (32-36); Mean Corpuscular Hemoglobin 29.9 pg (26-34); Mean Platelet Volume 10.3 fl (7.4-10.4); Monocytes Absolute Auto 0.6 K/mm3 (0.1-0.6); Monocytes Percent Auto 9.8 % (2.6-8.5); Neutrophils Absolute Auto 3.3 K/mm3 (1.3-6.7); Neutrophils Percent Auto 52.3 % (45.5-73.1); Platelet Count Result 252 k/mm3 (150-375); Red Blood Count 4.75 M/mm3 (4.2-5.4); Red Cell Distribution Width 13.5 % (11.5-14.5); White Blood Count 6.3 K/mm3 (4.5-10.0)
[2024-05-22 09:59] LABS: Alanine Aminotransferase 46 U/L (6-35); Albumin Level 4.4 g/dL (3.5-5.1); Alkaline Phosphatase 151 U/L (38-126); Anion Gap 9 mmol/L (4-12); Aspartate Amino Transferase 53 U/L (14-36); Bilirubin,Total 1.4 mg/dL (0.2-1.3); Blood Urea Nitrogen 15 mg/dL (7-17); Calcium 9.8 mg/dL (8.4-10.2); Carbon Dioxide 27 mmol/L (22-30); Chloride 105 mmol/L (98-107); Cholesterol 179 mg/dL (0-200); Estimated Glomerular Filt Rate > 60; Glucose 98 mg/dL (65-110); HDL Direct 47 mg/dL; Potassium 4.7 mmol/L (3.4-5.0); Sodium 141 mmol/L (137-145); Triglycerides 118 mg/dL (<150)
[2024-05-22 10:09] LABS: LDL Cholesterol Direct 85 mg/dL
[2024-05-22 10:18] LABS: Free T4 Free Thyroxine 1.12 ng/dL (0.78-2.19); Vitamin D 25 Hydroxy 50.7 ng/mL
== END 2024-05-22 08:29 | disposition home or self-care (01) ==
LOC: ANHLAB 08:32
PROVIDERS: PCP Internal Medicine; Visit Provider Internal Medicine
DX: M17.11 Unilateral primary osteoarthritis, right knee (principal); E55.9 Vitamin D deficiency, unspecified; E66.9 Obesity, unspecified; Z13.6 Encounter for screening for cardiovascular disorders
CPT/HCPCS: 36415; 80053; 80061; 82306; 84439; 84443; 85025

== ENCOUNTER 2024-06-29 11:09 | Emergency (ER) | payer OTHER, SELFPAY ==
--- NOTE | ~2024-06-29 | CT_ITS ---
EXAMINATION: CT lumbar spine wo con DATE: 06/29/2024 12:48 INDICATION: Left hip pain post fall TECHNIQUE: Computed tomography (CT) of the lumbar spine was performed without intravenous contrast. A utomated exposure control and iterative reconstruction technique were employed. The dose-length produ ct was 1291.55 mGy-cm. COMPARISON: None FINDINGS: Again seen are changes of prior L4 laminectomy. Unchanged anterior and posterior spinal fusion at L4- L5 and L5-S1 with interbody bone graft cages at both levels with bilateral vertical carin and pedicle s crew fixation at L4-L5. 2 mm retrolisthesis L3 on L4. Unchanged minimal likely physiologic anterior w edging at T11-L1. No acute fractures. Moderate disc height loss at L3-L4. Mild disc height loss at L2 -L3 as well as at T10-T11 through T12-L1. There is mild bilateral hydronephrosis, possibly also with bilateral parapelvic cysts. There is an 8 mm nodular soft tissue density in the right renal pelvis wh ich could represent a low-density stone although differential includes urothelial carcinoma. The foll owing disc levels are specifically discussed: T11-T12: The disc does not extend beyond the endplate margin. There is moderate bilateral facet joint osteoarthritis. There is no neural foraminal stenosis. There is no central canal stenosis. T12-L1: The disc does not extend beyond the endplate margin. There is mild bilateral facet joint oste oarthritis. There is no neural foraminal stenosis. There is no central canal stenosis. L1-L2: The disc does not extend beyond the endplate margin. There is mild to moderate bilateral facet joint osteoarthritis. There is no neural foraminal stenosis. There is no central canal stenosis. L2-L3: Disc is bulging. There is mild to moderate bilateral facet joint osteoarthritis. There is mild right and mild to moderate left neural foraminal stenosis. There is mild central canal stenosis. L3-L4: Disc is bulging.There is hypertrophy of the ligamentum flavum. There is moderate bilateral fa cet joint osteoarthritis. There is moderate bilateral neural foraminal stenosis. There is moderate ce ntral canal stenosis. L4-L5: Anterior and posterior spinal fusion. There is mild bilateral neural foraminal stenosis. There is posterior decompression with no central canal stenosis. L5-S1: Anterior spinal fusion. There is also fusion across the margins of the bilateral facet joints. There is mild bilateral neural foraminal stenosis. There is no central canal stenosis. IMPRESSION: 1. Moderate lumbar spondylosis with L4-S1 anterior and posterior spinal fusion. 2. Bilateral hydronephrosis with 8 mm nodular soft tissue density in the right renal pelvis which cou ld represent a low-density renal stone or solid urothelial carcinoma. Correlate with urinalysis and c onsider CT urogram for further evaluation. Reviewed, dictated and finalized at location A. IMPRESSION: 1. Moderate lumbar spondylosis with L4-S1 anterior and posterior spinal fusion. 2. Bilateral hydronephrosis with 8 mm nodular soft tissue density in the right renal pelvis which could represent a low-density renal stone or solid urothelia l carcinoma. Correlate with urinalysis and consider CT urogram for further eval uation.
--- NOTE | ~2024-06-29 | CT_ITS ---
Procedure: CT hip LT wo con Ordering provider: Kevin Briggs MD History: . Fall, DJD hip, multiple lumbar surgeries . Comparison: None. Technique: Thin slice axial CT of the No IV contrast was given. Sagittal and coronal reformatted imag es were also obtained and reviewed. Radiation reduction technique utilized. The dose-length product w as 703.98 mGy-cm. Findings: BONES: No evidence of fracture or dislocation. JOINT SPACES: Mild to moderate osteoarthritic changes. Left sacroiliitis. SOFT TISSUES: Normal. Postinjection calcifications seen in the left buttock. IMPRESSION: No evidence of fracture or dislocation seen in the left hip area. Mild to moderate osteoarthritic changes. Reviewed, dictated and finalized at location A.
[2024-06-29 11:26] VITALS: BP 168/105; PULSE 68; RESP 18; TEMP 36.6; O2SAT 99
--- NOTE | 2024-06-29 12:36 | ED.BACK ---
HPI - Back Pain/Injury General Chief Complaint: Back Pain/Injury Stated Complaint: Back pain after falling-has bulging disc Time Seen by Provider: 06/29/24 12:03 History of Present Illness HPI Narrative: 58-year-old female with a past medical history including degenerative joint disease, multiple lumbar surgeries for bulging discs. She has a cage in her back. Patient presents the emergency department after mechanical slip and fall onto her left side and hip. Patient states she slipped on wet tile. She is lying on her left side, did not hit her head or lose consciousness. She was able to get up and ambulate afterwards. 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 No footdrop or weakness. Denies any new sensory deficits or paresthesias/anesthesia. No loss of continence. Denies any midline back pain. Took some of her normal pain medications at home without significant relief. She is able ambulate although slowly. Patient denies any other trauma. Related Data Home Medications ?Medication ?Instructions ?Recorded ?Confirmed ?Last Taken ?Type multivitamin 1 tablet PO DAILY 08/28/21 06/29/24 Unknown History celecoxib 50 mg capsule (Celebrex) 50 mg PO BID 11/20/23 06/29/24 Unknown History alprazolam 0.5 mg tablet 0.5 mg PO TID PRN anxiety 06/29/24 06/29/24 Unknown History baclofen 10 mg tablet 10 mg PO Q12H PRN pain 06/29/24 06/29/24 Unknown History Allergies Allergy/AdvReac Type Severity Reaction Status Date / Time Penicillins Allergy Unknown Rash Verified 06/29/24 11:27 Review of Systems Review of Systems: As reviewed above in HPI [facility] Past Medical History Medical History Lesion of bone of right hand Degenerative joint disease (DJD) of lumbar spine Bilateral hip pain COLLEEN positive Surgical History Surgical History History of back surgery x3 History of hysterectomy, supracervical History of gastric surgery Hx of abdominoplasty 02/2003 History of Family History Family History Grandparent Diabetes mellitus Mother Cerebrovascular accident Social History Social History Smoking status: Never smoker Alcohol intake: current Alcohol use details: Rarely Substance use: never Lack of Transportation: No Lack of Food: Never True Current Housing: I Have Housing Concerned About Future Housing: No Difficulty Paying Gas/Electric Bills: No Difficulty Paying for Meds: No Currently Unemployed: No Education: Master's Degree or Higher Difficulty w/ Childcare or Family Care: No Living arrangements: with family Occupation/Education: retired Gender identity (if verbalized by the patient): Female Sexual Orientation (if Verbalized by the Patient): Straight or Heterosexual Spiritual care concerns: No Exam Narrative: GENERAL: [Well-appearing, well-nourished, and in no acute distress.] HEAD: [Normocephalic, atraumatic.] EYES: [PERRLA and EOMI.] ENT: Nares clear, no rhinorrhea or epistaxis. Mucous membranes moist. NECK: Supple. CHEST: [Clear to auscultation. No respiratory distress.] HEART: [Regular rate and rhythm]. No murmur heard. [Normal peripheral pulses.] ABDOMEN: [Soft, nondistended], [nontender], [No rigidity or guarding] EXTREMITIES: Normal range of motion. [No edema.] Tenderness to palpation of the left lower paraspinal muscles, left hip without any step-offs deformities. Full range of motion. Able ambulate without ataxic gait. EHL and FHL 5/5 strength. Able to flex at the hips bilaterally. SKIN: Warm, dry, no rash. NEURO: [No focal deficits]. Alert and oriented [x3.] No saddle anesthesias, no new paresthesias. No footdrop. EHL and FHL 5/5. Ambulatory. PSYCH: [Normal mood and affect.] Course Vital Signs Vital signs: Vital Signs Temperature 36.6 C 06/29/24 11:26 Pulse Rate 68 06/29/24 11:26 Respiratory Rate 18 06/29/24 11:26 Blood Pressure 168/105 H 06/29/24 11:26 Pulse Oximetry 99 06/29/24 11:26 Temperature 36.6 C 04/21/25 11:26 Pulse Rate 61 06/29/24 15:26 Respiratory Rate 20 06/29/24 15:26 Blood Pressure 147/88 H 06/29/24 15:26 Pulse Oximetry 97 06/29/24 15:26 MDM - Back Pain/Injury MDM Narrative Medical decision making narrative: 58-year-old female with history of degenerative joint disease in her left hip and chronic back pain. She has had multiple lumbar surgeries including a cage in her lumbar spine. No other recent injuries, last surgery was over 10 years ago. She presents after mechanical fall and slipping on wet tile at home. She landed on her left hip. Did not hit her head or lose consciousness. She has some left-sided paraspinal muscle pain and hip pain. No new neurological deficits. She has chronic left-sided paresthesias intermittently. No saddle anesthesias, no midline back pain. No incontinence. Normal EHL and FHL with good range of motion and ambulation. Vital signs reassuring. Pulses intact and warm extremities. Suspicion presently is for an exacerbation of chronic degenerative hip pain/back pain. Low suspicion traumatic injury such as fracture or loosening of the hardware. CTs of the hip and lumbar spine were obtained. She was provide intramuscular Dilaudid and re-evaluated. Patient was re-evaluated after dilaudid and had significant improvement in pain but was feeling slightly nauseous requiring p.o. Zofran. She was ambulatory in the emergency depart without difficulty. Pain was better. CT scan shows no acute fracture dislocations. Incidental finding of bilateral hydronephrosis with right kidney stone versus soft tissue mass. Discussed this with the patient and she states that she was not aware of this. Will have to follow-up on outpatient basis and provided instructions for this. She was given a short course of pain medications and safe for discharge home at this time. Medical Records Attestation: I reviewed the patient's medical records. Lab Data Attestation: I reviewed the patient's lab results. Imaging Data Attestation: I personally reviewed and interpreted this imaging study as follows: My impression: Impressions Hip CT 06/29/24 13:22 IMPRESSION: No evidence of fracture or dislocation seen in the left hip area. Mild to moderate osteoarthritic changes. Lumbar Spine CT 06/29/24 13:40 IMPRESSION: 1. Moderate lumbar spondylosis with L4-S1 anterior and posterior spinal fusion. 2. Bilateral hydronephrosis with 8 mm nodular soft tissue density in the right renal pelvis which could represent a low-density renal stone or solid urothelial carcinoma. Correlate with urinalysis and consider CT urogram for further evaluation. Discharge Plan Discharge Clinical Impression: Fall, Hip pain, left, Degenerative joint disease, Abnormal CT scan, kidney Patient Disposition: Home Condition: Stable Instructions: Antibiotic Form, Acute Low Back Pain (ED), Hydronephrosis (ED) Additional Instructions: Your CT scans of the back and hip did not show any fractures dislocations. No acute injury was discovered. Incidental findings including in your kidneys including bilateral hydronephrosis and an 8 mm density in the right kidney which could be a renal stone or mass. Call your primary doctor to have a close follow-up to further evaluate this on a a short-term basis in the next 3-5 days. We will send you home with some as needed pain control medications. If you start developing any new or worsening symptoms please return to the emergency department. Return to the ER if you have increased pain in your back, you develop lower extremity weakness/numbness/paralysis, you have numbness or tingling in your private parts, or you are unable to control your ability to urinate/stool. Patient Language: Paraguayan Prescriptions: New oxycodone 5 mg tablet 5 mg PO Q8H PRN (Reason: pain) Qty: 10 0RF ondansetron 4 mg tablet,disintegrating 4 mg PO Q8H PRN (Reason: nausea and vomiting) Qty: 10 0RF No Action celecoxib [Celebrex] 50 mg capsule 50 mg PO BID multivitamin Tablet 1 tablet PO DAILY baclofen 10 mg tablet 10 mg PO Q12H PRN (Reason: pain) alprazolam 0.5 mg tablet 0.5 mg PO TID PRN (Reason: anxiety) valacyclovir [Valtrex] 500 mg tablet 500 mg PO Q12H Qty: 90 3RF Rx Instructions: take 1 tablet every 12 hours for three days at onset of symptoms, and then take 1 tablet daily. Follow-up/Referrals: Alfred,Román Hemphill MD [Primary Care Provider] - 3 Days (incidental kidney findings on CT) Time of Disposition: 15:36
--- OUTSIDE RECORDS SUMMARY | 2024-06-29 12:58 | XMS_ITS ---
Author Organization [facility] Address [address] [facility] [address] [place] [address] Care Team Providers Care Trade Specialist Name Role Phone MAYO FREGOSO Primary Care Provider IMCKI GAYTAN [phone] REASON FOR VISIT Second visit Encounters Encounter Location Date Provider Diagnosis [facility] [address] [facility] [address] [place] [address] 06/15/2024 MICKI GAYTAN Plan Of Treatment No Information Progress Notes * Yumi PANDEYOB:1965 (58 yo F)Acc No.[id number]:06/15/2024 Patient: Claudette GODFREY Provider: Ludwig GAYTAN D.C. :1965 A ge:58 Y S ex:Female Date:06/15/2024 Address:[address], [facility] Pcp:MAYO FREGOSO Subjective: * Chief Complaints: * 1 . Second visit. * Medical History: Objective: * Vitals: Assessment: Plan: * Treatment: * Billing Information: * Visit Code: * Procedure Codes: * Electronic signature of JOHANNA GAYTAN DC on 06/29/2024 at 01:58 PM EDT Sign off status: Pending * Provider: Ludwig GAYTAN D.C. Date: 0 06/15/2024 Generated for Nydia andrews/Jimi/Jonathan on: 0 06/29/2024 01:58 PM EDT
--- OUTSIDE RECORDS SUMMARY | 2024-06-29 12:58 | XMS_ITS ---
Author Organization [facility] Address [address] [facility] [address] [place] [address] Care Team Providers Care Slate Roofer Helper Name Role Phone MAYO FREGOSO Primary Care Provider MICKI GAYTAN [phone] REASON FOR VISIT Second visit Encounters Encounter Location Date Provider Diagnosis [facility] [address] [facility] [address] [place] [address] 06/01/2024 MICKI GAYTAN Plan Of Treatment No Information Progress Notes * Yumi PANDEYOB:1965 (58 yo F)Acc No.[id number]:06/01/2024 Patient: Claudette GODFREY Provider: Ludwig GAYTAN D.C. :1965 A ge:58 Y S ex:Female Date:06/01/2024 Address:[address], [facility] Pcp:MAYO FREGOSO Subjective: * Chief Complaints: * 1 . Second visit. * Medical History: Objective: * Vitals: Assessment: Plan: * Treatment: * Billing Information: * Visit Code: * Procedure Codes: * Electronic signature of JOHANNA GAYTAN DC on 06/29/2024 at 01:58 PM EDT Sign off status: Pending * Provider: Ludwig GAYTAN D.C. Date: 0 06/01/2024 Generated for Nydia andrews/Jimi/Jonathan on: 0 06/29/2024 01:58 PM EDT
--- OUTSIDE RECORDS SUMMARY | 2024-06-29 12:58 | XMS_ITS | Patient Health Record ---
Author Organization [facility] Address [address] [facility] [address] [place] [address] Care Team Providers Care Dietary Supervisor Name Role Phone MAYO FREGOSO Primary Care Provider MICKI GAYTAN Unavailable [phone] Allergies Allergen (clinical drug ingredient) Drug/Non Drug Allergy documented on EMR Reaction Allergy Type Onset Date Status No Known Food Allergy Unknown Drug Allergy active Penicillin rash Drug Allergy active Reason For Referral No Information Problems Problem Type SNOMED Code ICD Code Onset Dates Problem Status W/U Status Risk Notes Problem 10863254 Radiculopathy, cervical region (M54.12) Active confirmed Problem 3848150 Lumbosacral radiculopathy (M54.17) Active confirmed Vital Signs Heart Rate 67 /min 05/18/2024 Temperature 97.3 degrees Fahrenheit 05/18/2024 Respiratory Rate 18 /min 05/18/2024 Height-cm 172.72 cm 05/18/2024 Oximetry 98 % 05/18/2024 Blood pressure diastolic 82 mm Hg 05/18/2024 Weight-kg 96.89 kg 05/18/2024 Height 68 in 05/18/2024 Blood pressure systolic 131 mm Hg 05/18/2024 Weight 213.6 lbs 05/18/2024 BMI 32.47 kg/m2 05/18/2024 Encounters Encounter Location Date Provider Diagnosis [facility] [address] [facility] [address] [place] [address] 05/18/2024 MICKI GAYTAN Radiculopathy, cervical region M54.12 ; Lumbosacral radiculopathy M54.17 ; Muscle spasm M62.838 and Segmental dysfunction of thoracic region M99.02 Assessments Encounter Date Diagnosis (ICD Code) Assessment Notes Treatment Notes Treatment Clinical Notes Section Notes 05/18/2024 Radiculopathy, cervical region (ICD-10 - M54.12) 05/18/2024 Lumbosacral radiculopathy (ICD-10 - M54.17) 05/18/2024 Muscle spasm (ICD-10 - M62.838) 05/18/2024 Segmental dysfunction of thoracic region (ICD-10 - M99.02) 05/18/2024 Other Consent to Treat form was [...] perform daily tasks that involve reaching and outstretched/over head type movements with the arms and shoulders. [...] Guarded at this time Plan Of Treatment No Information Insurance Providers Payer Name Payer Address Payer Phone Subscriber Number Group Number Insured Name Patient Relationship to Insured Coverage Start Date Coverage End Date [employer] CHOICE POS [address] [place] [address] [id number] Claudette Avalos Self - patient is the insured Medical (General) History Surgical History Surgery Date(Month/Year) PARTIAL HYSTERECTOMY Tonsillectomy Section
--- OUTSIDE RECORDS SUMMARY | 2024-06-29 12:58 | XMS_ITS | Clinical Summary ---
Author Organization [facility] [employer] Address [address] [facility] [place] [address] Care Team Providers Care Electrical Engineer Mep Name Role Phone Román Simon MD Primary Care Provider [phone] Allan Sanchez MD Unavailable [phone] Source Comments [facility],non-owned Affiliates and Associated Physician Practices is amultiple site organization consisting of ambulatory clinics and hospital sitesin [place], [place], [place] and [place]. This disclosure is being madepursuant to the Care Everywhere program and may not contain all information available regarding this patient. Last updated 17.[facility] [employer] Allergies Active Allergy Reactions Criticality Noted Date Comments Penicillins 09/13/2011 rash Medications * Be aware that medications may not be up to date on this document. Alwaysverify current medications with the patient. ibuprofen (ADVIL; MOTRIN) 100 MG/5ML SUSP suspension [...] = 0.6 oz pur e alcohol) Comments Unknown Sex and Gender Information Value Date Recorded Sex Assigned at Not on file Legal Sex Female 6:17 AM TECHNOLOGY METHODOLOGY CONSULTANT Gender Identity Not on file Sexual Orientation [...] SCREENING 1965 LIPID TESTING 1965 MAMMOGRAM 1965 HIV SCREENING 10/04/1982 HEPATITIS C SCREENING 09/30/1985 DTAP/TDAP/TD VACCINES (1 - Tdap) 10/04/1986 HEPATITIS B VACCINE (1 of 3 - 19+ 3-dose series) 10/04/1986 PNEUMOCOCCAL VACCINE 50+ (1 of 1 - PCV) 10/04/2017 ZOSTER VACCINE (1 of 2) 10/04/2017 COVID-19 VACCINE (1 - 2023-2 5 season) 2023 DEPRESSION SCREENING 03/11/2024 INFLUENZA VACCINE (Season Ended) 2024 HIB VACCINE Aged Out No longer eligi [...] on patient's age to complete this topic Insurance [facility] Care Teams Electrical Engineer Mep Relationship Specialty Start Date End Date Román Simon MD [address] [place] [address] [address] [place] [address] PCP - General 09/13/11 [place] [address] [address] Orthopedic Surgery 09/09/12
--- OUTSIDE RECORDS SUMMARY | 2024-06-29 12:59 | XMS_ITS | CONTINUITY OF CARE DOCUMENT ---
Author Name henrry sales Address Unknown Organization [facility] Address [address] [place] [address] [address] [place] [address] Phone [phone] Care Team Providers Care Credit Operations Processor Name Role Phone henrry sales Unavailable Unavailable INSURANCE PROVIDERS Payer name Policy type / Coverage type [place] red constitution party ID [facility] [id number] Other [id number]
--- OUTSIDE RECORDS SUMMARY | 2024-06-29 12:59 | XMS_ITS | Clinical Summary ---
Author Organization [facility] Address [address] [address] [place] [address] Phone Care Team Providers Care Dispatcher Maintenance Service Name Role Phone Román Simon MD Primary Care Provider [phone] Allergies Active Allergy Reactions Criticality Noted Date Comments Penicillins Rash Low 12/19/2017 Medications HYDROcodone-acet aminophen (HYCET) 7.5-325 mg/15 mL Solution Take 15 mL by mouth every 6 hours as needed for Pain, Severe. Max Daily Amount: 60 mL 300 mL 02/27/2018 2:49 PM ENTRY LEVEL INSTALLATION TECHNICIAN 02/26/2018 Active ondansetron (ZOFRAN ODT) 4 mg Tablet, Rapid Dissolve Place 1 Tablet (4 mg) under tongue every 6 hours as needed for Nausea. 10 Tablet 02/27/2018 2:49 PM ENTRY LEVEL INSTALLATION TECHNICIAN 02/26/2018 Active Active Problems Problem Noted Date [...] Comments Blood Pressure 158/89 02/27/2018 11:28 AM ENTRY LEVEL INSTALLATION TECHNICIAN Pulse 68 02/27/2018 11:28 AM ENTRY LEVEL INSTALLATION TECHNICIAN Temperature 36.5 C (97.7 F) 02/27/2018 11:28 AM ENTRY LEVEL INSTALLATION TECHNICIAN Respiratory Rate 16 02/27/2018 11:28 AM ENTRY LEVEL INSTALLATION TECHNICIAN Oxygen Saturation 100% 02/27/2018 11:28 AM ENTRY LEVEL INSTALLATION TECHNICIAN Inhaled Oxygen Concentration - - Weight 119.9 kg (264 lb 6 oz) 02/27/2018 4:21 AM ENTRY LEVEL INSTALLATION TECHNICIAN Height 172.7 cm (5' 8 ) 02/17/2018 8:54 AM ENTRY LEVEL INSTALLATION TECHNICIAN Body Mass Index 40.2 02/17/2018 8:54 AM ENTRY LEVEL INSTALLATION TECHNICIAN Plan of Treatment Health Maintenance Due Date Last Done Comments DTAP/TDAP/TD VACCINES (1 - Tdap) 10/04/1986 HEPATITIS B VACCINES (1 of 3 - 19+ 3-dose series) 09/09 HPV/Cotest (21-29) 10/04/1988 CERVICAL CANCER SCREENING 10/04/1997 HPV/Cotest (30-65) 10/04/1997 PAP SMEAR 10/04/1997 BREAST CANCER SCREENING 2007 COLORECTAL SCREENING 10/04/2012 Colorectal Cancer Screening 10/04/2012 FIT-DNA Q 3 years 10/04/2012 FIT/FOBT Q 1 year 10/04/2012 Flex Sig/CT Colonography Q 5 years 10/04/2012 ZOSTER VACCINE (1 of 2) 10/04/2017 INFLUENZA VACCINE (#1) 2023 Medical Devices Implanted Type Area Braiding Machine Tender Device Identifier Shelf Expiration Date Model / Serial / Lot Seamguard Endogia 60 Blck [id number] - [id number] Implanted:Qty : 2 on 02/26/2018 by Sandoval Pickens MD at [facility] Biological N/A: Stomach [employer] 10/08/2020 [id number] / / [id number] Seamguard Endogia 60 Prpl [id number] - [id number] Implanted:Qty : 2 on 02/26/2018 by Sandoval Pickens MD at [facility] Biological N/A: Stomach [employer] 10/08/2020 [id number] / / [id number] Cage,Screws Description:back Insurance BS BLUE ACCESS/TRUE BLUE PPO RX EXPRESS SCRIPTS Express RX [employer] Commercial Advance Directives For more information, please contact: [phone] * Full Code (Latest Code Status on File) Date Activated Date Inactivated Comments 02/26/2018 1:48 PM 02/27/2018 5:54 PM * Full Code Date Activated Date Inactivated Comments 02/26/2018 10:34 AM 02/26/2018 1:48 PM * Full Code Date Activated Date Inactivated Comments 12/20/2017 7:07 AM 12/20/2017 11:44 AM Care Teams Dispatcher Maintenance Service Relationship Specialty Start Date End Date Román Simon MD [address] [facility] [address] [place] [id number] PCP - General Internal Medicine 12/16/17
--- OUTSIDE RECORDS SUMMARY | 2024-06-29 12:59 | XMS_ITS ---
Author Organization [facility] Address [address] [place] [address] Care Team Providers Care Posting Machine Operator Name Role Phone ILDEFONSO MAYO Primary Care Provider MICKI GAYTAN Unavailable [phone] Allergies Allergen (clinical drug ingredient) Drug/Non Drug Allergy documented on EMR Reaction Allergy Type Onset Date Status No Known Food Allergy Unknown Drug Allergy active Penicillin rash Drug Allergy active REASON FOR VISIT Est. Lower Back pain/ Neck pain Problems Problem Type SNOMED Code ICD Code Onset Dates Problem Status W/U Status Risk Notes Problem 26618018 Radiculopathy, cervical region (M54.12) Active confirmed Problem 3807443 Lumbosacral radiculopathy (M54.17) Active confirmed Vital Signs Blood pressure systolic 131 mm Hg 05/19/19 25 Blood pressure diastolic 82 mm Hg 025 Temperature 97.3 degrees Fahrenheit 05/19/19 25 Heart Rate 67 /min 05/18/2024 Respiratory Rate 18 /min 05/18/2024 Oximetry 98 % 05/18/2024 Height 68 in 05/18/2024 Weight 213.6 lbs 05/18/2024 BMI 32.47 kg/m2 05/18/2024 Height-cm 172.72 cm 05/18/2024 Weight-kg 96.89 kg 05/18/2024 Encounters Encounter Location Date Provider Diagnosis [facility] [address] [place] [address] 05/18/2024 MICKI GAYTAN Radiculopathy, cervical region M54.12 [...] accurate. Prognosis: Favorable Guarded at this time Progress Notes * Yumi PANDEYOB:1965 (58 yo F)Acc No.[id number]:05/18/2024 Patient: Claudette GODFREY Provider: Ludwig GAYTAN D.C. :1965 A ge:58 Y S ex:Female Date:05/18/2024 Address:[address] [place] [address], [facility] Subjective: * Chief Complaints: * 1 . Est. Lower Back pain/ Neck pain. * HPI: H PI Details: General Information: Patient was referred today for chiropractic evaluation byLurdes will Report: Patient Subjective Progress Report C onditions/Complaints Today S ee HPI F requency: . S everity: 1 T he pain is: A fili, Sharp, Other - see notes D oes your condition affect your normal activities of daily living: Y es I f yes, is the effect: M oderate D oes your condition affect your work: Y [...] for any comments * Medical History: * Surgical History: P ARTIAL HYSTERECTOMY , Tonsillectomy , Section . * Family History: F ather: diagnosed with Heart Disease, Kidney disease. M other: diagnosed with Diabetes.? * Allergies: P enicillin: rash - Allergy, No Known Food Allergy: Allergy. Objective: * Vitals: B P:131/82mm Hg, Temp:97.3F, HR:67/min, RR:18/min, Oxygen sat %:98%, Pain scale:51-10, Ht: 68 in, Wt:213.6lbs, BMI:32.47Index, Ht-cm: 172.72 cm, Wt-k.89 kg. * Examination: O rthopedic Tests: Ortho (Cervical) C ompression R T,LT D istraction W NL S houlder Dep L T,RT V alsalva W NL S annette Bergeron P ositive Ortho (Lumbar) H eel Walking W NL [...] NL L 4 W NL L 5 L T Muscle Strength w as 5/5 in the upper extremities., was 5/5 in the lower extremities.. R eflex Tests: Reflexes 0-4 B iceps C5 W NL B rachio C6 W NL T riceps C7 W NL P atellar L4 W NL A chilles S1 W NL D TR's were 2+ bilaterally in the upper extremities DTR's were 2+ bilaterally in the lower extremities. * Physical Examination: P .A.R.T: Palpation Assessment P ain L ocation, Occ, C1, C2, C3, C4, C5, C6, C7, T1, T2, T3, T4, T5, T6, T7, T8, T9, T10, T11, T12, L1, L2, L3, L4, L5, S1, Right Ilium, Left Ilium A symmetry/Subluxation L ocation, C1, C2, C3, C5, T2, T3, T4, T5, T6, T7, T8, T9, L2, L3 R jane of Motion (Cervical) F lexion - No ROM loss R jane of Motion (Thoracic) F lexion - No ROM loss R jane of Motion (Lumbar) F lexion - No ROM loss T autness L ocation, Occ, C1, C2, C3, C4, C5, C6, C7, T1, T2, T3, T4, T5, T6, T7, T8, T9, T10, T11, T12, L1, L2, L3, L4, L5, S1, Right Ilium, Left Ilium Assessment: * Assessment: 1. R adiculopathy, cervical region - M54.12 (Primary) 2 . L umbosacral radiculopathy - M54.17 3 . M uscle spasm - M62.838 4 . S egmental dysfunction of thoracic region - M99.02 Plan: * Treatment: * Procedures: T reatment today consisted of gentle spinal manipulation via instrument assisted methods of the following levels: entire spine except for L3-S1 as those are previous surgical areas.? The patient tolerated the procedure well and experienced relief following the treatment. The patient is to avoid any pain producing activities and actively stretch. * Procedure Codes: 9 8941 CHIROPRACTIC MANIPULATION * Billing Information: * Visit Code: 78230 Office/outpatient visit new. * Procedure Codes: 27677 CHIROPRACTIC MANIPULATION. * Sign off status: Completed true * Provider: Ludwig GAYTAN D.C. Date: 0 05/18/2024 Generated for Nydia andrews/Jimi/eTransmitting on: 0 06/29/2024 01:58 PM EDT History and Physical Notes * HPI [...] this office:: See notes for any comments Physical Examination Category Sub-Category Detail Notes Section Note s P.A.R.T Palpation Assessment Pain: Locat ion, Occ, C1, C2, C3, C4, C5, C6, C7, T1, T2, T3, T4, T5, T6, T7, T8, T9, T10, T11, T12, L1, L2, L3, L4, L5, S1, Right Ilium, Left Ilium Asymmetry/Subluxation: Locat ion, C1, C2, C3, C5, T2, T3, T4, T5, T6, T7, T8, T9, L2, L3 Range of Motion (Cervical): Flexion - No ROM loss Range of Motion (Thoracic): Flexion - No ROM loss Range of Motion (Lumbar): Flexion - No R OM loss Tautness: Location, Occ, C1, C2, C3, C4, C5, C6, C7, T1, T2, T3, T4, T5, T6, T7, T8, T9, T10, T11, T12, L1, L2, L3, L4, L5, S1, Right Ilium, Left Ilium Examination Category Sub-Category Detail Notes Category Not es Orthopedic Tests Ortho (Cervical) Compression: RT,LT Distraction: WNL Shoulder Dep: LT,RT Valsalva: WNL Burton Bergeron: Positive Ortho (Lumbar) Heel Walking: WNL Toe Walking: WNL Bechterew's: WNL SLR: WNL Kemps: WNL Nicole's: WNL Bowstrings: WNL Noble: WNL MARISSA: WNL Nachlas: WNL Valsalva: WNL Linda's: WNL Milgram's: WNL Lorenzo/Dermatomes Tests Lorenzo/Dermatomes C5: WNL C6: WNL C7: WNL C8: WNL T1: WNL L1: WNL L2: WNL L3: WNL L4: WNL L5: LT Muscle Strength was 5/5 in the upper extremities., was 5/5 in the lower extremities. Reflex Tests Reflexes 0-4 Biceps C5: WNL DTR's were 2+ bilaterally in the upper extremities DTR's were 2+ bilaterally in the lower extremities Brachio C6: WNL Triceps C7: WNL Patellar L4: WNL Achilles S1: WNL
--- OUTSIDE RECORDS SUMMARY | 2024-06-29 12:59 | XMS_ITS | Encounter Summary ---
Author Organization [facility] Address [address] [place] [address] Care Team Providers Care Tipple Repairer Name Role Phone Román Simon MD Primary Care Provider [phone] Encounter Details Date Type Department Care Team (Late st Contact Info) Description 02/12/[address] [facility] [address] [place] [address] Sandoval Pickens MD [address] [place] [address] Social History Tobacco Use Types Packs/Day Years [...] on filedocumented in this encounter Care Teams Tipple Repairer Relationship Specialty Start Date End Date Román Simon MD [address] [facility] [address] [place] [address] PCP - General Internal Medicine 12/16/17 documented as of this encounter
[2024-06-29] MEDS: HYDROmorphone HCL INJ (*CRX) 2 MG/ML VIAL 1 MG IM (13:04)
[2024-06-29 13:07] VITALS: BP 152/81; PULSE 56; RESP 18; O2SAT 99
--- OUTSIDE RECORDS SUMMARY | 2024-06-29 13:50 | XMS_ITS | Data Portability ---
Author Organization [place] - [facility] [employer], Main Office Address [address] [place] [address] Care Team Providers Care Veterinary Pathologist Name Role Phone PARTH SIMON Primary Care Provider [phone] PARTH SIMON Referring Provider Assessment Encounter Date Assessment Date Assessment LastModified by Organization Details LastModified Time 01/14/2024 01/14/2024 The patient has trochanteric bursitis right hip chronic in nature and recurrent in nature. She was doing well until recently it has flared up again she has trouble sleeping at night on that side aches and throbs all the time now. She would like to try another shot of cortisone therefore under sterile conditions I injected the patient's right hip trochanteric bursa in the office with 4 cc of 0.5% bupivacaine and 20 mg of Kenalog. Patient tolerated procedure well. She is currently on Celebrex I have advised her to continue with this we also talked about stretching ice and massage of the area occasionally she will go get a massage this helps somewhat. As far as her right knee goes she has severe primary osteoarthritis particularly the patellofemoral articulation right knee. She is considering total knee arthroplasty sometime next year we will get her by with conservative measures whenever she is ready for another shot in the knee she will call she voiced understanding agrees above plan she will call for any further problems difficulties or questions. Not available 01/14/2024 15:24:37 05/22/2024 05/22/2024 The patient has trochanteric bursitis left hip she also has left sacroiliac pain. No radiculopathy is noted. Her x-rays today show some mild hypertrophic spurring off the superior lateral edge of the acetabulum otherwise unremarkable. She does have history of lumbar fusion also. We talked about treatment options in detail today the patient wanted to proceed with cortisone injections x2. Therefore under sterile conditions I injected the patient's left hip trochanteric bursa and also the left sacroiliac bursa in the office with 4 cc 0.5% bupivacaine and 20 mg of Kenalog each for a total of 2 injections. The patient tolerated the procedures well. We talked about heat and stretching followed by icing. She is seeing a chiropractor working on a stretching program there as well. She lives in [place] so she will follow up with us when possible otherwise she can see somebody in [place]. The patient voiced understanding agrees with the above plan she will call for any further problems difficulties or questions. Not available 05/22/2024 12:12:28 Plan of Treatment Reminders Order Date Submit Date Provider Last Modified By Organization Details Last Modified Time Details Appointments Any 2024 09:30A M MICHELLE Mckinney Not available Not available Not available Any 2024 09:30A M MICHELLE Mckinney Not available Not available Not available Any 2024 09:30A M MICHELLE Mckinney Not available Not available Not available Lab CBC w/ auto diff 2024 025 [facility], [address] [place], [address], 05/22/2024 13:31:26 T4, free, serum 2024 025 [facility], [address] [place], [address], 05/22/2024 13:38:54 TSH, serum or plasma 2024 025 [facility], [address] [place], [address], 05/22/2024 13:38:55 vitamin D, 25-hydrox y, total, serum 2024 025 [facility], [address] [place], [address], 05/22/2024 13:38:54 lipid panel, serum 2024 025 [facility], [address] [place], [address], 05/22/2024 13:38:54 CMP, serum or plasma 2024 025 [facility], [address] [place], [address], 05/22/2024 13:31:26 Referral None recorded. Procedures injection /aspirati on joint/bur sa (PROC) 2024 025 [email or web address] In-Office Order, Internal Use Only DO Not Attach Compendium DO Not Attach Compendium, Do Not Delete/merge, [id number] 05/22/2024 11:30:32 injection /aspirati on joint/bur sa (PROC) 2024 025 [email or web address] In-Office Order, Internal Use Only DO Not Attach Compendium DO Not Attach Compendium, Do Not Delete/merge, [id number] 05/22/2024 11:51:14 injection /aspirati on joint/bur sa (PROC) 2023 024 [email or web address] In-Office Order, Internal Use Only DO Not Attach Compendium DO Not Attach Compendium, Do Not Delete/merge, [id number] 01/14/2024 14:56:19 Surgeries None recorded. Imaging XR, hip + pelvis, unilatera l, 2 or 3 view 2024 025 [email or web address] [facility] [place], [address], [place], [address], 05/22/2024 12:15:20 XR, hip + pelvis, unilatera l 2023 024 [email or web address] [facility] [place], [address], [place], [address], 01/14/2024 16:20:28 Medication Orders bupivacai ne HCl 0.5 % (5 mg/mL) injection solution 2024 025 [email or web address] [id number], [address] [place], [address], 05/22/2024 11:53:01 Kenalog 10 mg/mL suspensio n for injection 2024 025 [email or web address] [id number], [address] [place], [address], 05/22/2024 11:53:01 bupivacai ne HCl 0.5 % (5 mg/mL) injection solution 2024 025 [email or web address] [id number], [address] [place], [address], 05/22/2024 11:53:01 Kenalog 10 mg/mL suspensio n for injection 2024 025 [email or web address] [id number], [address] [place], [address], 05/22/2024 11:53:01 bupivacai ne HCl 0.5 % (5 mg/mL) injection solution 2023 024 [email or web address] [id number], [address] , [place], [address], 05/21/2024 17:01:07 Kenalog 10 mg/mL suspensio n for injection 2023 024 [email or web address] [id number], [address], [place], [address], 05/21/2024 17:01:16 Patient TargetsNo targets recorded. Patient Instructions Encounter Date Encounter Id Patient Instructions Last Modified By Organization Details Last Modified Time 02/25/2024 [id number] Pain discomfort left foot etiology which obscure suspect some form of entrapment type of neuropathy. Will set up with Podiatry for further evaluation. Continue on anti-inflammatories Additional Orders - Directives - Recommendations 1. podiatry consult for left foot pain. 2. X-ray of left foot Keep Appointment: Sat 10:00 AM [place] Portions of the record may have been created with voice recognition software. Occasional wrong-word or s ound-a-like substitutions may have occurred due to the inherent limitations of voice recognition software. Read the chart carefully and recognize, using context, where substitutions have occurred. Created: Parth Simon M.D. 02.25.2024 10:15 AM [email or web address] Not available 02/25/2024 11:15:46 05/21/2024 [id number] Anxiety obesity class one both clinically stable. Check blood work consisting of CBC, CMP, lipid, thyroid and vitamin-D level. Set up for a screening mammogram follow-up in six months Additional Orders - Directives - Recommendations 1. Screening mammogram Follow Up: 6 Months Approximate Date: 11/17/2024 Portions of record are template driven. When necessary additional context will be provided. Additionally some portions have been created with voice recognition software. Occasional wrong-word or s ound-a-like substitutions may have occurred due to the inherent limitations of voice recognition software. Read the chart carefully and recognize, using context, where substitutions may have occurred. Created: Parth Simon M.D. 05.21.2024 04:15 PM [email or web address] Not available 05/21/2024 17:15:59 Reason for Referral None Reported. Results Created Date Observation Date Name Description Value Unit Range Abnormal Flag Note LastModifiedBy Organization Detail LastModifiedTime 01/14/20 24 XR, hip + pelvi s, unila teral No observ ation record ed. [email or web address] [facility] [place] [address], [place], [address], 01/14/2024 15:26:09 02/26/20 24 02/26/2024 XR, foot [facility] [address], [place] [address] [phone] [place] t Name: CLAUDETTE PANDEY Access ion #: [id number] Sex: F : 1965 5 Dictat ed By: Avery Costa Attend ing Physic laurita: BRAULIO SIMON CE Orderi ng Physic laurita: BRAULIO SIMON CE Exam Date: 2023 11:52 AM Exam Name: XR FOOT LT 3V+ Admitt ing Diagno sis(es ): CLINIC AL INDICA TION: pain in LT foot TECHNI QUE: 3 radiog raphic views of the left foot were obtain ed. Compar erick: None FINDIN GS/IMP RESSIO N: There is no eviden ce of acute fractu re or disloc ation. The visual ized joint space is well mainta ined. The alignm ent is anatom ical. Mild degene rative spurri ng of the calcan eus. Electr onical ly Signed by: Avery Costa at 2023 12:41: 53 PM Page [address] ([facility]) [address] [place], [address], 02/26/2024 14:06:15 05/23/19 25 XR, hip + pelvi s, unila teral , 2 or 3 view No observ ation record ed. [email or web address] [facility] [place] [address] [facility] [address], [place], [address], 05/22/2024 12:15:19 06/30/19 25 06/29/2024 imagi ng/di agnos tic resul t No observ ation record ed. [facility] [address] [facility] [address], [place], [address], 06/29/2024 14:33:04 Result Notes None recorded. Problems Name Problem SNOMED Code Status Onset Date Resolution Date Notes Provider Name and Address Organization Details Recorded Time Acute sinusitis 02430925 Active 2021 Not Available [facility] 3 16:26:47 Finding of body mass index 149587950 Active 2021 Not Available [facility] 3 16:26:47 Pain of left hip joint 0850962875883 00 Active 2021 Not Available [employer] 3 16:26:47 Pain in right hip joint 2194353900985 02 Active 2021 Not Available [employer] 3 16:26:47 Trochanter ic bursitis of left hip 2057713352512 03 Active 2021 Not Available [facility] 3 16:26:48 Trochanter ic bursitis of right hip 8332447924596 00 Active 2021 Not Available [facility] 3 16:26:48 Osteoarthr itis of right knee joint 5152710523756 00 Active 2021 Not Available [facility] 3 16:26:48 Multiple joint pain 67998442 Active 2021 Not Available [facility] 3 16:26:48 Osteoarthr itis 475996570 Active Not Available [facility] 3 16:26:48 Obesity 427694055 Active 2022 Not Available [facility] 3 16:26:48 Vitamin D deficiency 28982452 Active 2022 Not Available [facility] 3 16:26:48 Senile osteoporos is 83655035 Active 2022 Not Available [facility] 3 16:26:47 Myofascial pain 476122788 Active 2023 Faith Don null, [place] [facility] 4 15:59:21 Pain of right knee joint 3174588938362 00 Active 2023 Ellen Chappell CNA null, [place] [facility] 4 15:33:29 Pain in left foot 6063941919083 07 Active 2023 Parth Simon MD [address] [place] [address], [address] , [place] [facility] 4 11:12:08 Low back pain 191494439 Active 2023 Cuca Pappas null, [place] [facility] 4 16:58:21 Edema of lower extremity 680800242 Active 2023 Levar Lopez DPM [address], [place], [address] , [facility] [employer] [facility] 4 11:24:01 Left foot neuritis 0638921782521 06 Active 2023 Lvear Lopez DPM [address], [address], [place], [address] , [facility] [employer] [facility] [employer] [facility] 4 11:24:05 Exostosis of left foot 2767130387295 9100 Active 2023 Levar Lopez DPM [address], [place], [address] , [facility] [employer] [facility] 4 11:24:11 Pain in left sacroiliac joint 1315512031090 9102 Active 2024 [facility] [employer] [facility] 5 11:49:51 Problem Notes None recorded. Procedures Surgical History Date Name Laterality Status Provider Name and Address Organization Details Recorded Time 02/27/20 24 Corticosteroid Injection completed Levar Lopez DPM [address], [facility] [address], [place], [address], [facility] [employer] [facility] 02/27/2024 11:23:51 02/27/20 24 Unna boot - LE edema completed Levar Lopez DPM [address], [facility] [address], [place], [address], [facility] [employer] [facility] 02/27/2024 11:23:35 Imaging Results Imaging Date Name Status LastModified by Organiz ation Details LastModified Time 01/14/2024 XR, hip + pelvis, unilateral completed [email or web address] [facility] [address], [place], [address], 01/14/2024 15:26:09 02/26/2024 XR, foot completed [email or web address] [facility] (Imaging) [address] [place], [address], 02/26/2024 14:06:15 05/22/2024 XR, hip + pelvis, unilateral, 2 or 3 view completed [email or web address] [facility] [address] [facility] [address], [place], [address], 05/22/2024 12:15:19 06/29/2024 imaging/diagnos tic result active [facility] [address] [facility] [address], [place], [address], 06/29/2024 14:33:04 Procedure Notes None recorded. Medical Equipment None Reported. Allergies Allergen ID Allergen Name Allergen Category Reaction Reaction Severity Criticality Documentation Date Start Date Code Code System Note Provider Name and Address Organization Details Recorded Time 12140 Product containin g penicilli n (product) medicatio n rash severe Not available 05/09/2022 81454 8001 SNOMED Not Available [facility] 20:40:57 Medications Name Sig Start Date Stop Date Status Note LastModified by Organization Details LastModified Time celecoxib 200 mg capsule TAKE 1 CAPSULE BY MOUTH EVERY DAY 2024 active Not Available Not Available Not Avai lable cyclobenzap rine 10 mg tablet TAKE 1 TABLET BY MOUTH THREE TIMES A DAY 05/21 completed Not Available Not Available Not Available prednisone 10 mg tablet 10/29 completed Not Available Not Available Not Available doxycycline hyclate 100 mg capsule Take 1 capsule twice a day by oral route. active Not Available Not Available No t Available azithromyci n 250 mg tablet TK 2 TS PO ON DAY 1, THEN TK 1 T PO D FOR 4 DAYS 03/20 completed Not Available Not Available Not Available hydrocodone 5 mg-acetamin ophen 325 mg tablet TAKE 1 TABLET BY MOUTH THREE TIMES DAILY FOR 14 DAYS NEEDED 06/28 completed Not Available Not Available Not Available meloxicam 15 mg tablet TAKE 1 TABLET BY MOUTH EVERY DAY 10/29 completed Not Available Not Available Not Available bupivacaine HCl 0.5 % (5 mg/mL) injection solution Take 20 mg by injection route. 2024 active Not Available Not Available Not Avai lable phentermine 37.5 mg tablet TAKE 1 TABLET BY MOUTH DAILY 04/30 completed Not Available Not Available Not Available valacyclovi r 500 mg tablet TAKE 1 TABLET BY MOUTH EVERY 12 HOURS AT ONSET OF SYMPTOMS X3 DAYS, THEN 1 TABLET DAILY active Not Available Not Available No t Available prednisone 10 mg tablets in a dose pack Take 1 tab by mouth, 3 times a day for 3 daysTake 1 tab by mouth 2 times a day for 2 daysTake 1 tab by mouth once a day for 1 day 04/30 completed Not Available Not Available Not Available alprazolam 0.5 mg tablet Take 1 tablet 3 times a day by oral route as needed. 2024 active Not Available Not Available Not Avai lable estradiol 1 mg tablet TAKE 1 TABLET BY MOUTH DAILY 10/30 completed Not Available Not Available Not Available Kenalog 10 mg/mL suspension for injection Take 20 mg by injection route. 2024 active [facility]: [phone] Not Available Not Available Not Available baclofen 10 mg tablet Take 1 tablet 3 times a day by oral route. 2024 active Not Available Not Available Not Avai lable halobetasol propionate 0.05 % topical ointment 10/10 completed Not Available Not Available Not Available esterified estrogens-m ethyltestos terone 1.25 mg-2.5 mg tablet TAKE 1 TABLET BY MOUTH EVERY DAY 02/20 completed Not Available Not Available Not Available methylpredn isolone 4 mg tablets in a dose pack FOLLOW PACKAGE DIRECTION S 06/28 completed Not Available Not Available Not Available celecoxib 100 mg capsule TAKE 2 CAPSULES BY MOUTH EVERY DAY 2024 active Not Available Not Available Not Avai lable phentermine 37.5 mg capsule TAKE 1 CAPSULE BY MOUTH ONCE DAILY IN THE MORNING 10/10 completed Not Available Not Available Not Available Euflexxa 10 mg/mL (mw 2.4-3.6 million) intra-artic ular syringe Inject 2 mL every week by intra-art icular route as directed. 05/21 completed Not Available Not Available Not Available bimatoprost 0.03 % drops with applicator, eyelash base APPLY SCANT AMOUNT TO LASHLINE EVERY NIGHT AT BEDTIME 10/29 completed Not Available Not Available Not Available ropivacaine (PF) 5 mg/mL (0.5 %) injection solution Take 20 mg by injection route. 10/29 completed [facility] [phone] Not Available Not Available Not Available Osphena 60 mg tablet 06/28 completed Not Available Not Available Not Available Triluron 10 mg/mL intra-artic ular syringe active Not Available Not Available Not Available ID NOW COVID-19 Test Kit TEST DIRECTED TODAY 03/20 completed Not Available Not Available Not Available Vitals Date Recorded Body height Body mass index (BMI) Body weight Provider Name and Address Organization Details Last Updated DateTime 01/14/2024 177.8 cm 28 kg/m2 37392.51 g Ellen Chappell [employer] [facility] [employer] [facility] 01/14/2024 14:54:40 Date Recorded Body height Body mass index (BMI) Body weight Heart rate Body temperature Oxygen saturation Oxygen saturation in Arterial blood by Pulse oximetry Systolic blood pressure Diastolic blood pressure Provider Name and Address Organization Details Last Updated DateTime 4 177.8 cm 29.3 kg/m2 92461.8 4 g 82 /min 97 [degF] 98 % 98 % 122 mm[Hg] 80 mm[Hg] Fatuma Alberts [facility] [employer] [facility] 4 10:53:10 Date Recorded Body height Body mass index (BMI) Body weight Oxygen saturation Oxygen saturation in Arterial blood by Pulse oximetry Body temperature Heart rate Provider Name and Address Organization Details Last Updated DateTime 4 177.8 cm 29.3 kg/m2 61382.8 4 g 98 % 98 % 98.1 [degF] 84 /min Ramone Tovar [facility] [employer] [facility] 4 10:48:44 Date Recorded Body height Body mass index (BMI) Body weight Heart rate Body temperature Oxygen saturation Oxygen saturation in Arterial blood by Pulse oximetry Systolic blood pressure Diastolic blood pressure Provider Name and Address Organization Details Last Updated DateTime 5 175.26 cm 31.2 kg/m2 64205.9 9 g 68 /min 97 [degF] 98 % 98 % 122 mm[Hg] 70 mm[Hg] Cuca Pappas [facility] [employer] [facility] 17:00:48 Date Recorded Body height Body mass index (BMI) Body weight Provider Name and Address Organization Details Last Updated DateTime 05/22/2024 177.8 cm 29.4 kg/m2 35191.44 g Ellen ChappellTAMERA [facility] [employer] [facility] 05/22/2024 11:28:23 Social History Question Answer Notes LastModified by Organizat ion Details LastModified Time Tobacco Smoking Status Never Smoker Carmenza Kee michelle, [facility] [employer] [facility] 04/29/2023 09:30:00 What Is Your Level Of Alcohol Consumption? Occasional [id number] Information not available 05/09/2022 In The 14 Days Before Symptom Onset, Have You Had Close Contact With A Laboratory-confirm ed COVID-19 While That Case Was Ill? No [email or web address] Information n ot available 04/29/2023 In The 14 Days Before Symptom Onset, Have You Had Close Contact With A Person Who Is Under Investigation For COVID-19 While That Person Was Ill? No [email or web address] Information not available 04/29/2023 What Was The Date Of Your Most Recent Tobacco Screening? 06/28/2020 [email or web address] Information not available 04/29/2023 Have You Recently Traveled Abroad? No [email or web address] Information not available 04/29/2023 Sex: Unknown Functional Status None recorded. Mental Status None recorded. Family History Relationship Description Onset Age of this Age Resolved Age Notes LastModified by Organization Details LastModified Time Mother Family history of stroke Not available 05/22 11:24:13 Mother Hypertensive disorder [id number] Not available 05/09/2022 20:39:15 Mother Diabetes mellitus [id number] Not available 05/09/2022 20:39:15 Father Heart disease [id number] Not available 05/09/2022 20:39:15 Medical History Condition Response HEART VALVE DISORDERS N BLINDNESS N KIDNEY STONES N SLEEP APNEA Y MRSA N CARPAL TUNNEL SYNDROME N ALLERGIES/HAYFEVER N INFECTIOUS DISEASE N HEART ARRHYTHMIA N LUNG DISEASE/DISORDER N INSOMNIA N HISTORY OF DRUG ABUSE N COPD N RADIATION / CHEMOTHERAPY N HIGH CHOLESTEROL / HYPERLIPIDEMIA N RHEUMATOID ARTHRITIS N BLOOD DISEASES N EDEMA N CHRONIC PAIN SYNDROME N CAROTID BLOCKAGE N SCHIZOPHRENIA N BACK / NECK PROBLEMS Y BOWEL PROBLEMS N DEPRESSION (INCLUDING POST ) Y HAVE YOU BEEN HOSPITALIZED OR SEEN IN [facility] ER IN THE PAST YEAR ? N STROKE/TIA N BURSITIS N ULCERS N BENIGN PROSTATIC HYPERPLASIA N HERNIATED DISC N DIALYSIS N OBESITY Y GERD/NAUSEA N ANEURYSM N FIBROMYALGIA N OSTEOPOROSIS N URINARY/BLADDER/KIDNEY PROBLEMS N CORONARY ARTERY DISEASE (CAD) N Do you have Advance directive? N ARTHRITIS N ADDICTION CONCERNS N Do you have a healthcare POA? N NO SIGNIFICANT PAST MEDICAL HISTORY N USE OF BLOOD THINNERS N PERIPHERAL NEUROPATHY N DIABETES, TYPE N SKIN PROBLEMS N EMPHYSEMA N HEARTBURN / REFLUX N MUSCLE,JOINT OR BONE PROBLEMS N DVT N STOMACH ULCERS N Do you have a living will? N BLOOD CLOTS N HEPATITIS / LIVER DISEASE N USE OF NSAIDS N CONCUSSION OR SPINAL TRAUMA N GOUT N ALZHEIMER'S DISEASE N SLEEP DISORDER N HERPES N SEIZURES/EPILEPSY N HEADACHES/MIGRAINES N VASCULAR DISEASE N Blood Disorder N DIZZINESS N HEAD TRAUMA OR INJURY N HEART DISEASE/HEART PROBLEMS N NEUROPATHY N AIDS/HIV N FRACTURES N MULTIPLE SCLEROSIS N HYPERTENSION N CANCER: SPECIFY N CARDIAC ARRHYTHMIA N ANXIETY DISORDER N Metal allergy N BLOOD TRANSFUSION N ANESTHESIA COMPLICATIONS N ANEMIA/BLOOD DISORDER N ATRIAL FIBRILLATION N BIPOLAR DISORDER N BRONCHITIS N AUTOIMMUNE DISEASE N OSTEOARTHRITIS N TUBERCULOSIS N FOOT PROBLEM N Gynecological HistoryNo gynecological history recorded. Obstetrics History GPAL:G 0 P 0 0 0 0 Immunizations Vaccine Type Date Status Note Provider Nam e and Address Organization Details Recorded Time COVID-19, mRNA, LNP-S, PF, 100 mcg/0.5mL dose or 50 mcg/0.25mL dose 1 completed Not Available [facility] 12/08/2022 16:26:48 SARS-COV-2 (COVID-19) vaccine, UNSPECIFIED 1 completed Not Available [facility] 12/08/2022 16:26:48 SARS-COV-2 (COVID-19) vaccine, UNSPECIFIED 1 completed Not Available [facility] 12/08/2022 16:26:48 Past Encounters Encounter ID Performer Location Encounter Start Date Encounter Closed Date Diagnosis/Indication Diagnosis SNOMED-CT Code Diagnosis ICD10 Code Diagnosis Note [id number] [facility] [place] [address] [place] [address] 06/28/2020 00:00:00 06/28/2020 16:13:08 [id number] [facility] [place] [address] [place] [address] 07/05/2020 00:00:00 07/05/2020 16:10:31 [id number] [facility] [place] [address] [place] [address] 07/12/2020 00:00:00 07/12/2020 16:18:59 [id number] [facility] [address] [facility], [facility] [address] [place] [address] 10/10/2020 00:00:00 10/10/2020 17:24:56 [id number] [facility] [place] [address] [place] [address] 03/20/2021 00:00:00 03/20/2021 09:48:53 [id number] [facility] [place] [address] [place] [address] 03/27/2021 00:00:00 03/27/2021 10:08:45 [id number] [facility] [place] [address] [place] [address] 04/03/2021 00:00:00 04/03/2021 10:05:12 [id number] [facility] [address] [facility], [facility] [address] [place] [address] 04/26/2021 00:00:00 04/26/2021 17:00:50 [id number] [facility] [place] [address] [place] [address] 05/08/2021 00:00:00 05/08/2021 12:54:21 [id number] [facility] [address] [place] [address] 06/26/2021 00:00:00 06/26/2021 11:34:04 [id number] [facility] General Surgery 2043 [facility], [facility] 27 [place] [address] 08/24/2021 00:00:00 08/24/2021 14:27:14 [id number] [facility] General Surgery [address] [place] [address] [place] [address] 09/05/2021 00:00:00 09/05/2021 14:42:46 [id number] [facility] Internal Med [place] [address] [facility] [place] [address] 10/30/2021 00:00:00 10/30/2021 17:03:51 [id number] [facility] [address] [address] 02/20/2022 00:00:00 02/20/2022 09:47:53 [id number] [facility] [address] [address] 02/27/2022 00:00:00 02/27/2022 09:12:33 [id number] [facility] [address] [address] 03/13/2022 00:00:00 03/13/2022 09:26:53 [id number] [facility] Internal Med [facility] [address] [address] 04/30/2022 00:00:00 04/30/2022 12:05:17 [id number] MICHELLE Mckinney [facility] [address] [place] [address] 09/13/2022 13:15:13 09/13/2022 14:50:54 Osteoarthritis of right knee joint [id number] 43692 M17.11 Trochanter ic bursitis of left hip 1374515384 61704 M70.62 Trochanter ic bursitis of right hip 5644709948 25782 M70.61 Pain of le ft hip joint 4214085370 06292 M25.552 Pain in ri ght hip joint 1548475787 60245 M25.551 [id number] MICHELLE Mckinney [facility] [address] [place] [address] 09/20/2022 14:09:58 09/20/2022 15:13:42 Osteoarthritis of right knee joint 9018870703 23960 M17.11 Trochanter ic bursitis of left hip 5743726438 81879 M70.62 Trochanter ic bursitis of right hip 5171732754 38694 M70.61 Pain of le ft hip joint 8723571489 69834 M25.552 Pain in ri ght hip joint 9188094233 60875 M25.551 [id number] MICHELLE Mckinney [facility] [address] [place] [address] 09/27/2022 13:45:07 09/27/2022 13:59:20 Osteoarthritis 353470355 M17.11 [id number] Parth Simon MD [facility] Internal Med [facility] [address] [address] 10/29/2022 11:24:30 10/29/2022 12:01:19 Osteoarthritis 823138617 M17.11 Obesity 373863592 E66.9 Screening for cardiovascular system disease 298386058 Z13.6 Vitamin D deficiency 347 48620 E55.9 [id number] MICHELLE Mckinney [facility] [address] [place] [address] 04/29/2023 09:26:48 04/29/2023 10:13:29 Osteoarthritis of right knee joint 7231467947 79899 M17.11 Trochanter ic bursitis of left hip 6092688585 44545 M70.62 Trochanter ic bursitis of right hip 6478620268 28462 M70.61 Pain of le ft hip joint 6444645951 23802 M25.552 Pain in ri ght hip joint 3136115408 65683 M25.319 [id number] Parth Simon MD [facility] Internal Med [facility] [address] [address] 04/29/2023 11:21:45 04/29/2023 12:01:44 Adult health examination 495512975 Z00.00 Depression screening 171 535054 Z13.31 Obesity 963267615 E66.9 Vitamin D deficiency 347 19068 E55.9 [id number] MICHELLE Mckinney [facility] [address] [place] [address] 05/21/2023 15:40:02 05/27/2023 15:28:47 Osteoarthritis of right knee joint 9600114908 13890 M17.11 Myofascial pain 95284780 9 M79.10 right shoulder [id number] MICHELLE Mckinney [facility] [address] [place] [address] 05/28/2023 15:27:43 05/28/2023 16:10:05 Osteoarthritis of right knee joint 4631366705 65950 M17.11 Pain of ri ght knee joint 3005508510 07102 M25.055 [id number] MICHELLE MckinneyS[facility] [address] [place] [address] 06/03/2023 10:47:45 06/03/2023 11:53:52 Osteoarthritis of right knee joint 8012980583 86401 M17.11 Pain of ri ght knee joint 5976947642 62371 M25.378 [id number] MICHELLE MckinneyS[facility] [address] [place] [address] 10/21/2023 11:18:05 10/21/2023 11:52:16 Osteoarthritis of right knee joint 9880284157 84885 M17.11 Pain of ri ght knee joint 7421288141 23477 M25.136 [id number] MD DOROTA Alexis[facility] Internal Med [place] 2043 [facility], [place] [address] [place] [address] 10/28/2023 10:54:29 10/28/2023 11:39:52 Osteoarthritis 646510409 M17.11 [id number] MICHELLE MckinneyS[facility] [address] [place] [address] 12/05/2023 10:48:04 12/05/2023 13:18:41 Osteoarthritis of right knee joint 6410594814 98105 M17.11 Pain of ri ght knee joint 6508517445 85324 M25.400 [id number] MICHELLE Mckinney [facility] [address] [place] [address] 12/12/2023 10:55:03 12/12/2023 11:08:22 Osteoarthritis of right knee joint 9203994181 97965 M17.11 Pain of ri ght knee joint 2957123444 44813 M25.799 [id number] MICHELLE Mckinney [facility] [address] [place] [address] 12/19/2023 10:52:33 12/19/2023 13:08:16 Osteoarthritis of right knee joint 1243903363 15321 M17.11 Pain of ri ght knee joint 6297813670 08748 M25.206 [id number] MICHELLE Mckinney [facility] [address] [place] [address] 01/14/2024 14:48:54 01/14/2024 15:22:31 Pain in right hip joint 3309595360 07623 M25.551 Trochanter ic bursitis of right hip 8265940311 65344 M70.61 Osteoarthr itis of right knee joint 4171165232 16763 M17.11 [id number] Parth Simon MD [facility] 140 [place] [address] 02/25/2024 10:39:02 02/25/2024 11:47:50 Pain in left foot 0793959197 58356 M79.439 [id number] Levar Lopez DPM [facility] Podiatry [facility] [address] [address] 02/27/2024 10:45:02 02/27/2024 12:09:34 Edema of lower extremity 012314945 R60.0 Left foot neuritis 06918 59609 09412 G57.82 Exostosis of left foot 2786392955 1130939 M89.8X7 [id number] Parth Simon MD [facility] Primary Care [facility] lle [address] [facility] [address] [facility] [address] 05/21/2024 16:43:46 05/21/2024 17:23:17 Osteoarthritis 323746483 M17.11 Obesity 637540147 E66.9 Screening for cardiovascular system disease 282672934 Z13.6 Vitamin D deficiency 347 22762 E55.9 [id number] MICHELLE Mckinney [facility] [address] [place] [address] 05/22/2024 11:21:41 05/22/2024 11:54:01 Pain of left hip joint 0882754065 84082 M25.552 Trochanter ic bursitis of left hip 9139471694 78724 M70.62 Pain in le ft sacroiliac joint 3046903888 5443094 M53.3 Health Concerns Section Related Observation LastModified by Organization Detai ls LastModified Time None Recorded Concern Status LastModified by Organization Details LastModified Time None Recorded Advance Directives Directive None Recorded Payers Encounter Date Sequence Insurance Name Policy Number Policy Mathis Covered Member ID Mathis Member ID Guarantor Name 01/14/2024 2 [facility] Garrett Pandey [id number] Claudette Pandey 01/14/2024 1 [employer] [id number] Claudette Pandey [id number] Claudettear Pandey 02/25/2024 2 [facility] Garrett Pandey [id number] Claudettear Pandey 02/25/2024 1 [employer] [id number] Claudette Pandey [id number] I [id number] Claudette Pandey 02/27/2024 2 [facility] Garrett Pandey [id number] Claudettear Pandey 02/27/2024 1 [facility] [id number] Claudette Pandey [id number] I [id number] Claudette Pandey 05/21/2024 2 [facility] Garrett Pandey [id number] Claudetteeulalia Pandey 05/21/2024 1 [employer] [id number] Claudette R Pandey [id number] Claudette Pandey 05/22/2024 2 [facility] Garrett Pandey [id number] Claudette Pandey 05/22/2024 1 [employer] [id number] Claudette Pandey [id number] Claudette Pandey Notes Date Note Type Note Provider Name and Address Organization Details Recorded Time 01/14/2024 text/html Patient returns with right hip pain over the trochanteric region she has had chronic trochanteric bursitis this is recurrent in nature. Her last cortisone injection was in April of this year she has done well until recently when she was doing lots of walking and activity while making arrangements to move to [place]. She denies any groin pain it is all localized to the lateral trochanteric region somewhat into the buttock with a posterior lateral portion of the trochanteric region. A shot of cortisone last time gave her excellent relief. She takes Celebrex daily this helps somewhat but lately her pain has been about a 5 on a scale of 1-10 she has a lot more work to do in terms of moving to [place] she would like another shot of cortisone again today. We are getting new updated x-rays today as it has been more than a year since her last x-rays. MICHELLE Mckinney [address] [place] [address] [address], [place], [address], [place] [facility] [employer] 01/14/2024 15:27:16 02/25/2024 text/html Patient Name: St lorraine PandeyDate Of Service: Saturday ( 02.25.2024 ): 1965 Age: 58 There has been approximately a 4 lb weight gain since 10/28/2023. This represents approximately a 2.0% change in weight. Weight change attributable to lifestyle changes. Vital Signs:Blood Pressure: Sitting Rt. Arm 122/80Pulse: Sitting 82 /min and RegularRespiratory Rate: 16Height 69 in or 1.8 mWeight 204 lb or 92.5 kgBMI 30.1Temperature: 97 F or 36.1 CPulse Oximetry: 98 % at rest on no oxygen Chief Complaint: Addressed in HPI Problems or conditions discussed in the HPI were the only ones reviewed during the encounter.Only social and family history addressed in the HPI were reviewed during this encounter. Attendant(s): NoneConstitutional and Systemic Symptoms:none Medication Reconciliation: from medication list. History of Present Illness #1. Pain discomfort left foot particularly over the dorsum of the foot in the metatarsal area with radiation of pain and discomfort down in the 3rd and 4th digits. No associated swelling or discoloration. Is already on anti-inflammatory agents. This has been going on for approximately 1-2 months has not improve with the anti-inflammatories which he actually uses for other problems. No associated difficulty walking or ambulating. Does notice some pain and discomfort aggravated by flexing of the toes. No focal neurological abnormalities are noted.: Active Medication ListCelebrex 200 MG CAPSULE One DailyValacyclovir 500 MG TABLET, FILM COATED One Daily Adverse Drug Reactions ReviewedPenicillin UrticariaEry Tab NauseaBiaxin Nausea Vaccination and Immunization( ) 2020- COVID MODERNA(X) 2018-12 INFLUENZA(X) 2021-02 COVID BOOSTER MODERNA Surgical Xbdloji0689-70 Lumbar Hqsvvdoucfw8673-31 Abdominal Undwpzcnpgoo8518-19 U-tdljast3698-10 Lumbar Jmpopqceskk8982-50 Tonsillectomy Preventative Testing( ) 06/10/2023 DEXA Scan 06/09/2025( ) 05/06/2023 Albumin 4.4 G/DL(X) 04/11/2022 Mammogram 04/11/2023( ) 11/07/2021 Cologuard 11/07/2024( ) 03/20/2017 CEA(X) 03/29/2010 Upper Endoscopy 03/29/2011( ) 04/11/2006 HAIC 6.0 % OF TOTAL HGB H Social HistoryDoes not smokeDrinks sociallyOccupation teacher Family HistoryMother 74 with Type II DMFather 72 Irregular heart rate and ASHDBrother 1 good healthSister 1 good healthFamily hx of polycystic kidneys in paternal aunt and cousin Parth Simon MD [address], [place], [place], [address], [employer] 02/25/2024 11:15:52 02/27/2024 text/html Pain, Lt foot on top. Worse in shoes. Burning and present even when OWB. Xrays exposed were negative for fx or bony pathology. Levar Lopez DPM [address], [address], [place], [address], [employer] 02/27/2024 11:24:20 05/22/2024 text/html Patient returns complaining of left lateral hip pain and pain in the left upper buttock and sacroiliac region. She denies any trauma or injury she states recently she moved to [place] and has been very active with the moving packing and unpacking process with more activity than usual. This has aggravated her back and her hip. She denies any groin pain no loss of motion. She saw a chiropractor in [place] who was working on giving her stretching exercises and treating her. She states in the morning when she gets up she has a lot of stiffness and aching in these areas as described. She denies any neurovascular deficits or weakness no bowel or bladder symptoms. She has had a similar problem on the right side previously today she states the pain is about a 5 on a scale of 1-10. She has a couple of spots that are very tender 1 is the left sacroiliac region into the buttock and then also left trochanteric bursa. She denies any erythema effusion or signs of infection no loss of function and no pain with weight-bearing. Once she gets going through the day things start to stretch out get a little better. She comes in today requesting evaluation treatment as described. MICHELLE Mckinney [address], [facility] [address], [place], [address], [facility] [employer] 05/22/2024 12:16:58 OBGyn Episode No OBEpisode recorded.
--- OUTSIDE RECORDS SUMMARY | 2024-06-29 13:51 | XMS_ITS | Encounter Summary ---
Author Organization [facility] Address [address] [place] [address] Care Team Providers Care Laceworker Name Role Phone Román Simon MD Primary Care Provider [phone] Encounter Details Date Type Department Care Team (Late st Contact Info) Description 02/12/[address] [facility] [address] [place] [address] Sandoval Pickens MD [address] [place] [address] Social History Tobacco Use Types Packs/Day Years [...] on filedocumented in this encounter Care Teams Laceworker Relationship Specialty Start Date End Date Román Simon MD [address] [facility] [address] [place] [address] PCP - General Internal Medicine 12/16/17 documented as of this encounter
--- OUTSIDE RECORDS SUMMARY | 2024-06-29 13:51 | XMS_ITS | Clinical Summary ---
[facility] Address [address] [address] [place] [address] Phone Care Team Providers Care Recycling Crew Supervisor Name Role Phone Román Simon MD Primary Care Provider [phone] Allergies Active Allergy Reactions Criticality Noted Date Comments Penicillins Rash Low 12/19/2017 Medications HYDROcodone-acet aminophen (HYCET) 7.5-325 mg/15 mL Solution Take 15 mL by mouth every 6 hours as needed for Pain, Severe. Max Daily Amount: 60 mL 300 mL 02/27/2018 2:49 PM [employer] HOUSES TR[employer]MER 02/26/2018 Active ondansetron (ZOFRAN ODT) 4 mg Tablet, Rapid Dissolve Place 1 Tablet (4 mg) under tongue every 6 hours as needed for Nausea. 10 Tablet 02/27/2018 2:49 PM [employer]MER 02/26/2018 Active Active Problems Problem Noted Date [...] Comments Blood Pressure 158/89 02/27/2018 11:28 AM [employer]MER Pulse 68 02/27/2018 11:28 AM [employer]MER Temperature 36.5 C (97.7 F) 02/27/2018 11:28 AM [employer]MER Respiratory Rate 16 02/27/2018 11:28 AM [employer]MER Oxygen Saturation 100% 02/27/2018 11:28 AM [employer] H[employer]MER Inhaled Oxygen Concentration - - Weight 119.9 kg (264 lb 6 oz) 02/27/2018 4:21 AM [employer] Height 172.7 cm (5' 8 ) 02/17/2018 8:54 AM [employer]MER Body Mass Index 40.2 02/17/2018 8:54 AM [employer] HOUSES TR[employer]MER Plan of Treatment Health Maintenance Due Date [...] (#1) 2023 Medical Devices Implanted Type Area Buffer Machine Device Identifier Shelf Expiration Date Model / Serial / Lot Seamguard Endogia 60 Blck [id number] - [id number] Implanted:Qty : 2 on 02/26/2018 by Sandoval Pickens MD at [facility] Biological N/A: Stomach [employer] 10/08/2020 [id number] / / [id number] Seamguard Endogia 60 Prpl [id number] - [id number] Implanted:Qty : 2 on 02/26/2018 by Sandoval Pickens MD at [facility] Biological N/A: Stomach [employer] 10/08/2020 [id number] / / [id number] Cage,Screws Description:back Insurance BS BLUE ACCESS/TRUE BLUE PPO RX EXPRESS SCRIPTS Express RX [employer] Commercial Advance Directives For more information, please contact: [phone] * Full Code (Latest Code Status on File) Date Activated Date Inactivated Comments 02/26/2018 1:48 PM 02/27/2018 5:54 PM * Full Code Date Activated Date Inactivated Comments 02/26/2018 10:34 AM 02/26/2018 1:48 PM * Full Code Date Activated Date Inactivated Comments 12/20/2017 7:07 AM 12/20/2017 11:44 AM Care Teams Recycling Crew Supervisor Relationship Specialty Start Date End Date Román Simon MD [address] [facility] [address] [place] [address] PCP - General Internal Medicine 12/16/17
--- OUTSIDE RECORDS SUMMARY | 2024-06-29 13:51 | XMS_ITS | CONTINUITY OF CARE DOCUMENT ---
Author Name henrry sales Address Unknown Organization [facility] Address [id number] [place] [address] [address] [place] [address] Phone [phone] Care Team Providers Care Electrotype Servicer Name Role Phone henrry sales Unavailable Unavailable INSURANCE PROVIDERS Payer name Policy type / Coverage type [place] red alliance party ID [facility] [id number] Other [id number]
--- OUTSIDE RECORDS SUMMARY | 2024-06-29 13:51 | XMS_ITS | Clinical Summary ---
Author Organization [facility] Address [address] [place] [place] [address] Care Team Providers Care Timing Inspector Name Role Phone Román Simon MD Primary Care Provider [phone] Allan Sanchez MD Unavailable [phone] Source Comments [facility],non-owned Affiliates and Associated Physician Practices is amultiple site organization consisting of ambulatory clinics and hospital sitesin [place], [place], [place]. This disclosure is being madepursuant to the Care Everywhere program and may not contain all information available regarding this patient. 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
[2024-06-29 14:30] VITALS: BP 136/78; PULSE 61; RESP 16; O2SAT 95
[2024-06-29] MEDS: ONDANSETRON HCL ODT 4 MG TABLET PO (15:24)
[2024-06-29 15:26] VITALS: BP 147/88; PULSE 61; RESP 20; O2SAT 97
== END 2024-06-29 16:22 | disposition home or self-care (01) ==
PROVIDERS: Emergency Provider Student in an Organized Health Care Education/Training Program; PCP Internal Medicine
DX: S79.912A Unspecified injury of left hip, initial encounter (principal); M16.12 Unilateral primary osteoarthritis, left hip; R93.421 Abnormal radiologic findings on diagnostic imaging of right kidney; M47.816 Spondylosis without myelopathy or radiculopathy, lumbar region; Z98.1 Arthrodesis status; Z90.710 Acquired absence of both cervix and uterus; N13.30 Unspecified hydronephrosis; W01.0XXA Fall on same level from slipping, tripping and stumbling without subsequent striking against object, initial encounter
CPT/HCPCS: 72131; 73700; 96372; 99284; A9270; J1171

== ENCOUNTER 2024-07-17 09:54 | Outpatient (CLI) | payer OTHER, SELFPAY ==
--- NOTE | ~2024-07-17 | CT_ITS ---
CT of the Abdomen: Indication: Bilateral hydronephrosis Technique: 2.5 mm axial scans were obtained through the abdomen prior to and following intravenous a dministration of 100 cc of Omnipaque 350. Dose reduction technique was used on this scan by utilizing automated exposure control and iterative reconstruction technique. The dose-length product (DLP) was 1297.51 mGy-cm. Findings: Scans through the lung bases there is a calcified right lower lobe granuloma, and discoid left basilar atelectasis or scarring. Calcified right hilar lymph nodes are present. The liver, spleen, pancreas, gallbladder, and adrenal glands are within normal limits. There are bila teral parapelvic renal cysts. No definite hydronephrosis. No evidence of aortic aneurysm. No lymphad enopathy. Prior sleeve gastrectomy. Visualized bowel loops otherwise are unremarkable. There is minimal hazines s in the central mesentery with small shotty lymph nodes, compatible with mesenteric panniculitis.. N o ascites. Impression: No hydronephrosis. Bilateral parapelvic renal cysts. Mesenteric panniculitis. Reviewed, dictated and finalized at location . Impression: No hydronephrosis. Bilateral parapelvic renal cysts. Mesenteric panniculitis.
== END 2024-07-17 09:55 | disposition home or self-care (01) ==
PROVIDERS: PCP Internal Medicine; Visit Provider Internal Medicine
DX: N28.1 Cyst of kidney, acquired (principal); K65.4 Sclerosing mesenteritis
CPT/HCPCS: 74170; Q9967